=== PATIENT | male | born 1950 | race Caucasian/White ===

== ENCOUNTER 2018-09-04 23:36 | Observation (INO) | payer OTHER ==
[~2018-09-04] VITALS: Ht 172.7 cm; Wt 109.9 kg
--- NOTE | 2018-09-05 00:07 | PHYS DOC ---
Past History Past Medical History: Diabetes, Hypertension, [place] Past Surgical History: Cholecystectomy, Other Alcohol Use: None Drug Use: None Adult General Chief Complaint Chief Complaint: NAUSEA/VOMITING/DIARRHEA HPI HPI 68-year-old male presents via EMS with elevated blood sugar. The patient is diabetic on Humalog and Tresiba. He states that he was checking his blood sugar this evening and it was 343. He is not on a sliding scale to adjust her dose of its elevated. He was concerned about this level. He has been taking his insulins as prescribed. He has had some nausea but denies vomiting. He denies any other symptoms of illness. EMS found the patient's blood pressure be quite elevated. The patient tells me that he is not on any blood pressure medicines. He denies headache or visual disturbance. He denies fever or chills. He denies chest pain, shortness of breath, or diaphoresis. Review of Systems Review of Systems Constitutional: Denies fever or chills [] Eyes: Denies change in visual acuity, redness, or eye pain [] HENT: Denies nasal congestion or sore throat [] Respiratory: Denies cough or shortness of breath [] Cardiovascular: No additional information not addressed in HPI [] GI: Nausea. Denies abdominal pain, vomiting, bloody stools or diarrhea [] : Denies dysuria or hematuria [] Musculoskeletal: Denies back pain or joint pain [] Integument: Denies rash or skin lesions [] Neurologic: Denies headache, focal weakness or sensory changes [] Endocrine: Denies polyuria or polydipsia [] All other systems were reviewed and found to be within normal limits, except as documented in this note. Current Medications Current Medications Current Medications Medications (Trade) Dose Ordered Sig/[facility] Start Time Stop Time Status Last Admin Dose Admin Ondansetron HCl (Zofran) 4 mg 1X ONCE 09/05/18 00:00 09/05/18 00:01 UNV Physical Exam Physical Exam Constitutional: Well developed, obese, well nourished, no acute distress, non- toxic appearance. [] HENT: Normocephalic, atraumatic, bilateral external ears normal, oropharynx dry , no oral exudates, nose normal. [] Eyes: PERRLA, EOMI, conjunctiva normal, no discharge. [] Neck: Normal range of motion, no tenderness, supple, no stridor. [] Cardiovascular:Heart rate regular rhythm, no murmur [] Lungs & Thorax: Bilateral breath sounds clear to auscultation [] Abdomen: Bowel sounds normal, soft, no tenderness, no masses, no pulsatile masses. [] Skin: Warm, dry, no erythema, no rash. [] Back: No tenderness, no CVA tenderness. [] Extremities: No tenderness, no cyanosis, no clubbing, ROM intact, no edema. [] Neurologic: Alert and oriented X 3, normal motor function, normal sensory function, no focal deficits noted. The patient is a little slow to answer questions, but answers appropriately.[] Psychologic: Affect normal, judgement normal, mood normal. [] Current Patient Data Vital Signs Vital Signs Date Time Temp Pulse Resp B/P (MAP) Pulse Ox O2 Delivery O2 Flow Rate FiO2 09/04/18 23:36 97.9 59 22 93 Room Air EKG EKG Sinus rhythm, rate 60, normal axis, no ST elevation or depression[] Radiology/Procedures Radiology/Procedures [] Impressions: Examination: CHEST AP ONLY History: Chest pain Comparison/Correlation: None Findings: Portable frontal view chest was obtained. Sternal wires are present. Heart size is normal. No pneumothorax. Right lung field is clear. Left heart border is somewhat ill-defined. This may represent underlying adjacent lingular atelectasis. No significant effusion. Impression: Lingular atelectasis adjacent to the mediastinum is questioned. Consider interval follow-up two-view chest x-ray exam. Electronically signed by: Mindy Ray MD (09/05/2018 12:30 AM) [facility] DICTATED AND SIGNED BY: MINDY RAY MD DATE: 09/05/18 0026 CC: PAL HUTCHINSON DO; SABINO GROVER MD Course & Med Decision Making Course & Med Decision Making Pertinent Labs and Imaging studies reviewed. (See chart for details) 1 L of normal saline has been ordered. The patient is a slightly elevated white count 12.4. His urinalysis is significant for greater than 1000 glucose, but no signs of infection. Patient's EKG is unremarkable. His blood sugars to 92 but his anion gap is normal. The patient has had an elevated blood pressure in the 200s over 110s. I will give him 0.2 clonidine. His BP is still 180s over 100s. His repeat blood sugar after 1 L normal saline is 242. I will hold off on giving him the insulin as his long-acting may continue to correct his hyperglycemia. I will admit the patient to the hospital for further management of his blood pressure and blood sugar. I discussed the case with Dr. Sánchez and he has accepted the patient for admission. [] Dragon Disclaimer Dragon Disclaimer This electronic medical record was generated, in whole or in part, using a voice recognition dictation system. PAL HUTCHINSON DO Sep 05, 2018 00:07
[2018-09-05] MEDS ORDERED: IV NORMAL SALINE 1,000ML 1,000 ML IV ONE (00:15)
[2018-09-05 00:17] LABS: BASO # 0.1 x10^3/uL (0.0-0.2); BASO % 1 % (0-3); EOS # 0.1 x10^3/uL (0.0-0.7); EOS % 1 % (0-3); HEMATOCRIT 49.3 % (39.0-53.0); LYMPH # 4.1 x10^3/uL (1.0-4.8); LYMPH % 33 % (24-48); MEAN CORPUSCULAR HEMOGLOBIN 30 pg (25-35); MEAN CORPUSCULAR HGB CONC 34 g/dL (31-37); MEAN CORPUSCULAR VOLUME 88 fL (79-100); MONO # 1.4 x10^3/uL (0.0-1.1); MONO % 11 % (0-9); NEUT # 6.7 x10^3uL (1.8-7.7); NEUT % 54 % (31-73); PLATELET COUNT 236 x10^3/uL (140-400); RED BLOOD COUNT 5.63 x10^6/uL (4.30-5.70); RED CELL DISTRIBUTION WIDTH 14.3 % (11.5-14.5); WHITE BLOOD COUNT 12.4 x10^3/uL (4.0-11.0)
[2018-09-05 00:27] LABS: BACTERIA,URINE 0 /HPF (0-FEW); BILIRUBIN,URINE NEG (NEG); CLARITY,URINE CLEAR; COLOR,URINE YELLOW; GLUCOSE,URINE >=1000 mg/dL (NEG); NITRITE,URINE NEG (NEG); RBC,URINE OCC /HPF (0-2); SQUAMOUS EPITHELIAL CELL,UR OCC /LPF; UROBILINOGEN,URINE 0.2 mg/dL (0.2 mg/dL); WBC,URINE OCC /HPF (0-4)
[2018-09-05] MEDS ORDERED: cloNIDine HCL 0.1 MG TABLET PO ONE (00:30)
[2018-09-05] MEDS ORDERED: ONDANSETRON PF 4 MG/2 ML VIAL. IV ONE (00:30)
[2018-09-05] MEDS ORDERED: METOPROLOL TARTRATE 5 MG/5 ML VIAL. IV ONE (00:30)
[2018-09-05 00:32] LABS: ALBUMIN 3.7 g/dL (3.4-5.0); ALBUMIN/GLOBULIN RATIO 0.8 (1.0-1.7); CALCIUM 9.4 mg/dL (8.5-10.1); CREATININE 0.9 mg/dL (0.7-1.3); GFR 83.7; POTASSIUM 3.8 mmol/L (3.5-5.1); TOTAL BILIRUBIN 0.3 mg/dL (0.2-1.0); TOTAL PROTEIN 8.3 g/dL (6.4-8.2)
--- NOTE | 2018-09-05 00:33 | RAD ---
Examination: CHEST AP ONLY History: Chest pain Comparison/Correlation: None Findings: Portable frontal view chest was obtained. Sternal wires are present. Heart size is normal. No pneumothorax. Right lung field is clear. Left heart border is somewhat ill-defined. This may represent underlying adjacent lingular atelectasis. No significant effusion. Impression: Lingular atelectasis adjacent to the mediastinum is questioned. Consider interval follow-up two-view chest x-ray exam. Electronically signed by: Kale Montalvo MD (09/05/2018 12:30 AM) [id number]
[2018-09-05] MEDS ORDERED: INSULIN REGULAR 100 UNIT/ML 3ML VIAL. IV ONE (01:15)
[2018-09-05 02:45] VITALS: BP 167/84
--- NOTE | 2018-09-05 02:54 | EKG ---
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
[2018-09-05 06:35] VITALS: BP 141/83
[2018-09-05] MEDS ORDERED: HYDR25TA10 PO (07:55)
[2018-09-05] MEDS ORDERED: LISI-334 PO (07:55)
[2018-09-05] MEDS ORDERED: METF10007 PO (07:55)
[2018-09-05] MEDS ORDERED: INSU100I30 SQ (07:55)
[2018-09-05] MEDS ORDERED: DEXTROSE 50% 25 GM / 50ML DISP.SYRIN. IV PRN (08:00)
[2018-09-05] MEDS ORDERED: PREG150C PO (08:21)
[2018-09-05] MEDS ORDERED: TRAZ-86 PO (08:21)
[2018-09-05] MEDS ORDERED: metFORMIN XR 500 MG TAB.ER.24H PO SCH (08:30)
[2018-09-05] MEDS: INSULIN LISPRO 300 UNITS/3 ML INSULN.PEN. SQ SCH ×2 (08:58→13:58)
[2018-09-05] MEDS ORDERED: LISINOPRIL 20 MG TABLET PO SCH (09:00)
[2018-09-05] MEDS ORDERED: hydroCHLOROthiazide 25 MG TABLET PO SCH (09:00)
[2018-09-05] MEDS ORDERED: INSULIN DEGLUDEC 70 UNIT SQ SCH (09:00)
[2018-09-05] MEDS ORDERED: PREGABALIN 75 MG CAPSULE PO SCH (09:00)
[2018-09-05 10:38] VITALS: BP 169/82
[2018-09-05] MEDS ORDERED: ACETAMINOPHEN 325 MG TABLET PO PRN (13:45)
[2018-09-05 14:20] VITALS: BP 163/91
--- NOTE | 2018-09-05 18:01 | SSS ---
ADMIT DATE: 09/05/2018 HISTORY OF PRESENT ILLNESS: The patient is a 68-year-old male patient, who came to the Emergency Room with recurrent episodes of nausea, vomiting and diarrhea. He was extensively investigated in the Emergency Room, was found to have clearly elevated blood sugar with a blood sugar of 343 and his blood pressure also was extremely high. He stated that he has been taking his insulin as prescribed. He did complain apparently have some nausea, but denied any vomiting. He denied any other symptoms of illness. His blood pressure was found to be quite elevated. He seemed to have some problems with his memory. He is actually on blood pressure medication. He takes from [facility] and his primary care physician is Dr. Marte. In any case, the patient was extensively investigated in the Emergency Room, was found to have a markedly elevated blood sugar of 343 and blood pressure was extremely high also with initial measurement was almost 201/83. The patient was started on IV fluids, was given insulin and his blood sugar came down slowly. PAST MEDICAL HISTORY: Significant for type 2 diabetes, hypertension, and hyperlipidemia. He has coronary artery disease, status post CABG in 2004. He has also PCI with stent deployment and cerebrovascular accident. PAST SURGICAL HISTORY: Significant for coronary artery bypass graft surgery, PCI with stent deployment valve replacement, cholecystectomy, and colonoscopy. ALLERGIES: He has no known drug allergies. MEDICATIONS: He is currently on following medications: He is on lisinopril 20 mg once a day, Lyrica 150 mg once a day, trazodone 100 mg at bedtime, hydrochlorothiazide 25 mg once a day, and metformin 1000 mg once a day. He is on Tresiba FlexTouch 70 units daily and he is also on Humalog insulin as the insulin sliding scale. FAMILY HISTORY: He has 2 brothers and 4 sisters. His younger brother in a car accident at the age of 31. His father at age of 64 because of cancer. Mother at age of 82. SOCIAL HISTORY: He is , has 2 sons. Quit smoking at the age of 49 about 19 years ago. He does not drink alcohol and use sometimes marijuana. 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 REVIEW OF SYSTEMS: As per history of present illness. PHYSICAL EXAMINATION GENERAL: When I examined him, after we restarted his medication, he looked well and was clearly in no apparent respiratory distress. VITAL SIGNS: His heart rate was 71, blood pressure was 163/91, temperature was 98.1, and respiratory rate 20, and oxygen saturation was 94%. HEAD, EYES, EARS, NOSE AND THROAT: Showed normocephalic, atraumatic. NECK: Supple. HEART: Showed normal first and second heart sounds with no gallop, rub or murmur. CHEST: Clear to auscultation. No crepitation or rhonchi. ABDOMEN: Distended, soft, nontender. No guarding or rigidity. No organomegaly. All hernial orifice intact. Bowel sounds normal. NEUROLOGIC: He was awake, alert, responding appropriately. All cranial nerves intact. He moves extremities without difficulty, ambulates without assistance or assistive devices. LABORATORY DATA: Showed a serum sodium 139, potassium 3.8, chloride 101, bicarbonate 24, anion gap of 14, BUN of 18, creatinine 0.9, estimated GFR was 83 mL per minute. His glucose was 292, calcium was 9.4. Total bilirubin, AST, ALT, alkaline phosphatase were normal. His total protein was 8.3 and albumin was 3.7. His serum lipase was 337. White cell count was 12,400, hemoglobin 17, hematocrit 49, MCV 88 and platelet count 236,000. Urinalysis was essentially unremarkable. There was a large amount of protein and large amount of glucose, trace of ketones, trace of blood, negative for leukocyte esterase, no rbc's, no wbc's, and no bacteria. His chest x-ray was unremarkable and a portable chest x-ray showed that sternal wires are present. Heart size is normal. No pneumothorax. Right lung ellis are clear. Left heart border is somewhat ill-defined that represents underlying adjacent lingular atelectasis. No significant effusion: As the patient remained stable and his blood pressure and blood sugar improved, a decision was made to discharge him home to continue on his current medication. We will write a prescription for his lisinopril and the patient was advised to follow with his primary care physician. FINAL DISCHARGE DIAGNOSES: 1. Poorly controlled type 2 diabetes mellitus. 2. Poorly controlled hypertension, much better improved once we started him on all his medication. FABIAN GLASS MD DR: GERARD/zuleika JOB#: [id number] / [id number]
[2018-09-05] MEDS ORDERED: traZODone 100 MG TABLET. PO SCH (21:00)
== END 2018-09-05 15:43 | disposition home or self-care (01) ==
LOC: ER 23:36 → INTOOBSV 09-05 01:10 → 1 SOUTH 09-05 01:10 → ER 09-05 01:48
PROVIDERS: ADMIT Internal Medicine; ATTEND Internal Medicine
DX: E11.65 Type 2 diabetes mellitus with hyperglycemia (principal); I10 Essential (primary) hypertension; I25.10 Atherosclerotic heart disease of native coronary artery without angina pectoris; E78.5 Hyperlipidemia, unspecified; Z86.73 Personal history of transient ischemic attack (TIA), and cerebral infarction without residual deficits; Z95.1 Presence of aortocoronary bypass graft; Z95.2 Presence of prosthetic heart valve; Z90.49 Acquired absence of other specified parts of digestive tract; Z79.899 Other long term (current) drug therapy
CPT/HCPCS: 36415; 71045; 80053; 81001; 82947; 83690; 84484; 85025; 93005; 96361; 96372; 96374; G0378; G0379; J1815; J2405; 99284-25; J7030

== ENCOUNTER 2018-11-19 13:12 | Emergency (ER) | payer OTHER ==
[~2018-11-19] VITALS: Ht 175.3 cm; Wt 112.5 kg
[~2018-11-19 13:12] MED LIST: HYDR25TA10 PO; INSU100I30 SQ; LISI-334 PO; METF10007 PO; PREG150C PO; TRAZ-86 PO
--- NOTE | 2018-11-19 14:09 | PHYS DOC ---
Past History Past Medical History: Diabetes, Hypertension, [place] Past Surgical History: Cholecystectomy, Other Alcohol Use: None Drug Use: None Adult General Chief Complaint Chief Complaint: LACERATION/AVULSION HPI HPI 68-year-old male [facility] of the left hand. Patient was cutting food at home with a knife slipped and he lacerated the base of his left thumb. The lacerations about 3 cm in length. Patient had immediate bleeding and realized that needed to be stitched. He has no other injuries. The knife was not heavily contaminated. Patient had a tetanus shot 3 years ago. Review of Systems Review of Systems Constitutional: Denies fever or chills [] Eyes: Denies change in visual acuity, redness, or eye pain [] HENT: Denies nasal congestion or sore throat [] Respiratory: Denies cough or shortness of breath [] Cardiovascular: No additional information not addressed in HPI [] GI: Denies abdominal pain, nausea, vomiting, bloody stools or diarrhea [] : Denies dysuria or hematuria [] Musculoskeletal: Denies back pain or joint pain [] Integument: Centimeter curved laceration of the left palm[] Neurologic: Denies headache, focal weakness or sensory changes [] Endocrine: Denies polyuria or polydipsia [] All other systems were reviewed and found to be within normal limits, except as documented in this note. Allergies Allergies Allergies Coded Allergies Type Severity Reaction Last Updated Verified No Known Drug Allergies 09/05/18 No Physical Exam Physical Exam Constitutional: Well developed, well nourished, no acute distress, non-toxic appearance. [] HENT: Normocephalic, atraumatic, bilateral external ears normal, oropharynx moist, no oral exudates, nose normal. [] Eyes: PERRLA, EOMI, conjunctiva normal, no discharge. [] Neck: Normal range of motion, no tenderness, supple, no stridor. [] Cardiovascular:Heart rate regular rhythm, no murmur [] Lungs & Thorax: Bilateral breath sounds clear to auscultation [] Abdomen: Bowel sounds normal, soft, no tenderness, no masses, no pulsatile masses. [] Skin: 3 cm curved laceration at the base of the left thumb. Neurovascularly intact[] Back: No tenderness, no CVA tenderness. [] Extremities: No tenderness, no cyanosis, no clubbing, ROM intact, no edema. [] Neurologic: Alert and oriented X 3, normal motor function, normal sensory function, no focal deficits noted. [] Psychologic: Affect normal, judgement normal, mood normal. [] Current Patient Data Vital Signs Vital Signs Date Time Temp Pulse Resp B/P (MAP) Pulse Ox O2 Delivery O2 Flow Rate FiO2 11/19/18 13:15 98.2 59 20 96 Room Air EKG EKG [] Radiology/Procedures Radiology/Procedures [] Course & Med Decision Making Course & Med Decision Making Pertinent Labs and Imaging studies reviewed. (See chart for details) Patient had a laceration of the palm of his left hand. I was able to repair with sutures. See note for more details. His tetanus is up to date as it was only 3 years ago. He is stable for discharge at this time. Antibiotics are not indicated at this time. [] Dragon Disclaimer Dragon Disclaimer This electronic medical record was generated, in whole or in part, using a voice recognition dictation system. Laceration Repair Lac Repair Indication: [3 cm curved laceration of the palm of the left hand at the base of the left thumb.] Procedure: Verbal consent was obtained from the patient for suture repair of his laceration. Wound was thoroughly cleansed with a saline Hibiclens mixture. There were no foreign bodies found. I anesthetized the patient with 2.5 mL of 2 % lidocaine with epinephrine. Once adequate anesthesia was achieved and was able repair the laceration with 4 4-0 Ethilon sutures in an interrupted fashion. The wound was then covered in triple antibiotic and a nonadherent dressing. Total repaired wound length: [3 cm]. Other Items: [None] The patient tolerated the procedure well. Complications: [None. Departure Departure: Impression: Primary Impression: Laceration of left hand without complication, excluding fingers Disposition: 01 HOME, SELF-CARE Condition: IMPROVED Referrals: SABINO GROVER MD (PCP) Patient Instructions: Laceration Care, Adult, [facility] Problem Qualifiers Primary Impression: Laceration of left hand without complication, excluding fingers Encounter type: initial encounter Qualified Codes: S61.412A - Laceration without foreign body of left hand, initial encounter PAL HUTCHINSON DO Nov 19, 2018 14:09
[2018-11-19 14:10] VITALS: BP 154/69
== END 2018-11-19 14:10 | disposition home or self-care (01) ==
LOC: ER 13:12
DX: S61.412A Laceration without foreign body of left hand, initial encounter (principal); E11.9 Type 2 diabetes mellitus without complications; I10 Essential (primary) hypertension; I25.2 Old myocardial infarction; W26.0XXA Contact with knife, initial encounter; Y93.89 Activity, other specified; Y92.89 Other specified places as the place of occurrence of the external cause; Y99.8 Other external cause status
CPT/HCPCS: 12001; 12002; 99283

== ENCOUNTER 2018-11-24 12:12 | Emergency (ER) | payer OTHER ==
--- NOTE | 2018-11-24 12:35 | PHYS DOC ---
Past History Past Medical History: Diabetes, [place], [place] Past Surgical History: Cholecystectomy, Other Alcohol Use: None Drug Use: None Adult General Chief Complaint Chief Complaint: suture removal [facility] HPI Patient is a 68 year old male who presents suture removal. Patient had left palm laceration and had 4 stitches placement on November 19. Patient was updated with his tetanus immunization. Patient denies any fever and pain. Review of Systems Review of Systems Constitutional: Denies fever or chills [] Eyes: Denies change in visual acuity, redness, or eye pain [] HENT: Denies nasal congestion or sore throat [] Respiratory: Denies cough or shortness of breath [] Cardiovascular: No additional information not addressed in HPI [] GI: Denies abdominal pain, nausea, vomiting, bloody stools or diarrhea [] : Denies dysuria or hematuria [] Musculoskeletal: Denies back pain or joint pain [] Integument: Denies rash or skin lesions [] Neurologic: Denies headache, focal weakness or sensory changes [] Endocrine: Denies polyuria or polydipsia [] All other systems were reviewed and found to be within normal limits, except as documented in this note. Allergies Allergies Allergies Coded Allergies Type Severity Reaction Last Updated Verified No Known Drug Allergies 09/05/18 No Physical Exam Physical Exam Constitutional: Well developed, well nourished, no distress, non-toxic appearance. [] HENT: Normocephalic, atraumatic. Eyes: PERRLA, EOMI, conjunctiva normal, no discharge. [] Neck: Normal range of motion, no tenderness, supple, no stridor. [] Cardiovascular:Heart rate regular rhythm, no murmur [] Lungs & Thorax: Bilateral breath sounds clear to auscultation [] Skin: Warm, dry, no erythema, no rash. Left thumb with 4 healed suture sign of infection [] Back: No tenderness, no CVA tenderness. [] Extremities: No tenderness, no cyanosis, no clubbing, ROM intact, no edema. [] Neurologic: Alert and oriented X 3, no focal deficits noted. [] Psychologic: Affect normal, judgement normal, mood normal. [] EKG EKG [] Radiology/Procedures Radiology/Procedures [] Course & Med Decision Making Course & Med Decision Making Evaluation of patient in ER showed 68-year-old male patient presented for suture removal. 4 well healed suture of left thumb was removed by by [employer]. Goldy Disclaimer Dragon Disclaimer This electronic medical record was generated, in whole or in part, using a voice recognition dictation system. Departure Departure: Impression: Primary Impression: Encounter for removal of sutures Disposition: HOME, SELF-CARE (at 1234) Condition: STABLE Referrals: SABINO GROVER MD (PCP) Patient Instructions: Suture Removal Additional Instructions: Keep wound clean and dry SEJAL TREVINO MD Nov 24, 2018 12:35
== END 2018-11-24 12:41 | disposition home or self-care (01) ==
LOC: ER 12:12
DX: S61.412D Laceration without foreign body of left hand, subsequent encounter (principal); E11.9 Type 2 diabetes mellitus without complications; I10 Essential (primary) hypertension; I25.2 Old myocardial infarction; X58.XXXD Exposure to other specified factors, subsequent encounter
CPT/HCPCS: 99281

== ENCOUNTER 2019-08-24 20:15 | Inpatient (IN) | payer MEDICARE, OTHER ==
[~2019-08-24] VITALS: Ht 175.3 cm; Wt 103.9 kg
[~2019-08-24 20:15] MED LIST changes: +TRAZ-125 PO; -TRAZ-86 PO
[2019-08-24] MEDS ORDERED: ASPIRIN 81 MG TAB.CHEW ONE (20:18)
[2019-08-24] MEDS ORDERED: IV RINGERS SOLUTION,LACTATED 1,000 ML IV SCH (20:26)
--- NOTE | 2019-08-24 20:26 | PHYS DOC ---
Past History Past Medical History: No Pertinent History, Arthritis, CAD, CHF, COPD, Diabetes, GERD, Hypertension, Other Past Surgical History: Angioplasty, Coronary Bypass Surgery Smoking: Cigarettes, Quit Greater Than 1 Year Alcohol Use: None Drug Use: Marijuana Adult General Chief Complaint Chief Complaint: CHEST PAIN." I have some chest pain here on Lt... center lower... it been constant the last hour... I had prior [place] and Bypass... " HPI HPI Patient is a 69 year old male who presents with above hx of chest pain x 1 hrs. patient localizes pain in left pectoral and sternal area. Patient's rated 9-10 out of 10 and has been constant for the past hour. Patient states pain is similar to previous heart attack. Patient reports compliance wtith his meds. Pt. had previous bypass surgery in 1980s and had a cardiac stent approximately 4 years ago. Patient normally follows with Dr. Grover and a binding cementer french cord at [facility] but does not remember name. Patient states he no longer smokes tobacco but does smoke marijuana. No recent travel or specific ill contacts. Did patient has history of multiple medical issues arthritis, coronary artery disease, CHF, COPD, diabetes, GERD, hypertension, and deconditioning. Review of Systems Review of Systems Constitutional: Denies fever or chills [] Eyes: Denies change in visual acuity, redness, or eye pain [] HENT: Denies nasal congestion or sore throat [] Respiratory: Denies cough or shortness of breath [] Cardiovascular: No additional information not addressed in HPI [] GI: Denies abdominal pain, nausea, vomiting, bloody stools or diarrhea [] : Denies dysuria or hematuria [] Musculoskeletal: Denies back pain or joint pain [] Integument: Denies rash or skin lesions [] Neurologic: Denies headache, focal weakness or sensory changes [] Endocrine: Denies polyuria or polydipsia [] All other systems were reviewed and found to be within normal limits, except as documented in this note. Family History Family History Noncontributory Current Medications Current Medications Current Medications Medications (Trade) Dose Ordered Sig/Jeffrey Start Time Stop Time Status Last Admin Dose Admin Aspirin (Children'S Aspirin) 81 mg STK-MED ONCE 08/24/19 20:18 08/24/19 20:18 DC Allergies Allergies Allergies Coded Allergies Type Severity Reaction Last Updated Verified No Known Drug Allergies 09/05/18 No Physical Exam Physical Exam Constitutional: Moderate acute distress, non-toxic appearance. [] HENT: Normocephalic, atraumatic, bilateral external ears normal, oropharynx moist, no oral exudates, nose normal. Edentulous Eyes: PERRLA, EOMI, conjunctiva normal, no discharge. [] Neck: Normal range of motion, no tenderness, supple, no stridor. [] Cardiovascular:Heart rate regular rhythm, no murmur []PMI to the left Lungs & Thorax: Bilateral breath sounds equal at apex with scattered wheezing throughout on auscultation []midline sternal scar Abdomen: Bowel sounds normal, soft, no tenderness, no masses, no pulsatile masses. [] Obese. Old surgery scars Skin: Warm, dry, no erythema, no rash. [] Back: No tenderness, no CVA tenderness. [] Extremities: No tenderness, no cyanosis, no clubbing, ROM intact, ankle edema. Arthritic changes.. [] Neurologic: Alert and oriented X 3, moves extremities on request. Does have distal sensory. No focal deficits noted. [] Psychologic: Affect anxious, judgement normal, mood normal. [] EKG EKG My interpretation EKG shows a sinus rhythm at 60 bpm. Some nonspecific T-wave changes in inferior changes. Slightly prolonged QT interval. QTC is 490 ms QT is 456 ms no current findings of acute STEMI with contralateral changes Radiology/Procedures Radiology/Procedures [][place] [address] IMAGING REPORT Signed PATIENT: SHARONDA DO ACCOUNT: [id number] : 1950 LOCATION: ER AGE: 69 SEX: M EXAM STATUS: REG ER ORD. PHYSICIAN: EVETTE PATEL MD REASON: CHEST PAIN. PROCEDURE: PORTABLE CHEST 1V PORTABLE CHEST 1V INDICATION: Chest pain. COMPARISON STUDY: 09/04/2018. FINDINGS: Lungs: Low lung volume. No confluent consolidation. Prominent interstitial markings. Pleura: No pleural effusion or pneumothorax. Heart and Mediastinum: The cardiomediastinal silhouette is normal. The great vessels of the thorax are normal. IMPRESSION: Prominent interstitial markings, which may reflect interstitial edema. Electronically signed by: Kassidy Herndon MD (08/24/2019 8:51 PM) [facility] DICTATED AND SIGNED BY: KASISDY HERNDON MD DATE: 08/24/192050 CC: EVETTE PATEL MD; SABINO GROVER MD ~ Course & Med Decision Making Course & Med Decision Making Pertinent Labs and Imaging studies reviewed. (See chart for details) Admit to Dr. Diallo with cardiology consult. Will start insulin drip. Do not feel these in DKA but just hyperglycemia. Patient will have serial enzymes. In a cardiology consult. Heart Score 6 Impression: 1. Chest Pain 2. Leukocytosis 12.2 3. DM - glucose 548 4. Marijuana Use 5. Hx. CADz with bypass and stents 6. Hx. of COPD [] Dragon Disclaimer Dragon Disclaimer This electronic medical record was generated, in whole or in part, using a voice recognition dictation system. Departure Departure: Disposition: 01 HOME/RESIDENCE PRIOR TO ADM Condition: STABLE Referrals: SABINO GROVER MD (PCP) EVETTE PATEL MD Aug 24, 2019 20:26
[2019-08-24] MEDS ORDERED: ENOXAPARIN ** NOTE DOSE ** SYRINGE SQ ONE (20:30)
[2019-08-24] MEDS ORDERED: MORPHINE SULFATE 2 MG/ML DISP.SYRIN. IV ONE (20:30)
[2019-08-24] MEDS ORDERED: NITROGLYCERIN OINT 1 GM PACKET. TP ONE (20:30)
[2019-08-24] MEDS ORDERED: ASPIRIN 81 MG TAB.CHEW PO ONE (20:30)
[2019-08-24 20:40] LABS: BASO # 0.1 x10^3/uL (0.0-0.2); BASO % 1 % (0-3); EOS # 0.1 x10^3/uL (0.0-0.7); EOS % 1 % (0-3); HEMATOCRIT 50.2 % (39.0-53.0); LYMPH # 3.3 x10^3/uL (1.0-4.8); LYMPH % 27 % (24-48); MEAN CORPUSCULAR HEMOGLOBIN 30 pg (25-35); MEAN CORPUSCULAR HGB CONC 34 g/dL (31-37); MEAN CORPUSCULAR VOLUME 89 fL (79-100); MONO # 1.2 x10^3/uL (0.0-1.1); MONO % 10 % (0-9); NEUT # 7.4 x10^3uL (1.8-7.7); NEUT % 61 % (31-73); PLATELET COUNT 220 x10^3/uL (140-400); RED BLOOD COUNT 5.62 x10^6/uL (4.30-5.70); WHITE BLOOD COUNT 12.2 x10^3/uL (4.0-11.0)
--- NOTE | 2019-08-24 20:54 | RAD ---
PORTABLE CHEST 1V INDICATION: Chest pain. COMPARISON STUDY: 09/04/2018. FINDINGS: Lungs: Low lung volume. No confluent consolidation. Prominent interstitial markings. Pleura: No pleural effusion or pneumothorax. Heart and Mediastinum: The cardiomediastinal silhouette is normal. The great vessels of the thorax are normal. IMPRESSION: Prominent interstitial markings, which may reflect interstitial edema. Electronically signed by: Lorenzo Herndon MD (08/24/2019 8:51 PM) [facility]
[2019-08-24 20:58] LABS: BARBITURATES NEG (NEG); BENZODIAZEPINES NEG (NEG); CANNABINOIDS POS (NEG); CLARITY,URINE CLEAR; COCAINE NEG (NEG); COLOR,URINE YELLOW; GLUCOSE,URINE >=1000 mg/dL (NEG); METHADONE NEG (NEG); OPIATES NEG (NEG); PHENCYCLIDINE NEG (NEG)
[2019-08-24 20:59] LABS: BACTERIA,URINE FEW /HPF (0-FEW); BILIRUBIN,URINE NEG (NEG); NITRITE,URINE NEG (NEG); RBC,URINE RARE /HPF (0-2); UROBILINOGEN,URINE 0.2 mg/dL (0.2 mg/dL); WBC,URINE RARE /HPF (0-4)
[2019-08-24 21:00] LABS: AMPHETAMINE/METHAMPHETAMINE NEG (NEG)
[2019-08-24 21:02] LABS: ALBUMIN 3.6 g/dL (3.4-5.0); CALCIUM 9.3 mg/dL (8.5-10.1); CREATININE 1.2 mg/dL (0.7-1.3); DIRECT BILIRUBIN 0.1 mg/dL (0.0-0.2); GFR 59.9; MAGNESIUM 1.8 mg/dL (1.8-2.4); POTASSIUM 4.4 mmol/L (3.5-5.1); TOTAL BILIRUBIN 0.3 mg/dL (0.2-1.0); TOTAL PROTEIN 8.1 g/dL (6.4-8.2)
[2019-08-24] MEDS ORDERED: INSULIN REGULAR VIAL 150 UNIT in 0.9 % SODIUM CHLORIDE 150ML 150 ML IV ONE ×2 (21:30→21:45)
[2019-08-24] MEDS ORDERED: IV NORMAL SALINE 1,000ML 1,000 ML IV ONE (21:30)
[2019-08-24] MEDS ORDERED: 0.9 % SODIUM CHLORIDE 150ML 150 ML ONE (21:37)
[2019-08-24] MEDS ORDERED: ACETAMINOPHEN 325 MG TABLET PO PRN (21:45)
[2019-08-24] MEDS ORDERED: ONDANSETRON PF 4 MG/2 ML VIAL. IV PRN (21:45)
[2019-08-24] MEDS: MORPHINE SULFATE 2 MG/ML DISP.SYRIN. IV PRN (22:39)
[2019-08-24 23:06] LABS: BGAS PH 7.35 (7.35-7.46)
[2019-08-25] MEDS: INSULIN REGULAR VIAL 150 UNIT in 0.9 % SODIUM CHLORIDE 150ML 150 ML IV PRN ×4 (00:52→10:57)
[2019-08-25 01:01] VITALS: BP 118/75
--- NOTE | 2019-08-25 02:00 | NUR ---
The patient, SHARONDA DO, 69 y/o, M admitted by SERA ROSADO MD, to room 122, was given written information regarding hospital policies, unit procedures and contact persons. Valuables were checked and left with the patient. Vitals assessed. Medical and social history reviewed. Medication use reviewed. Insulin drip reviewed and adjusted. Will continue to monitor.
--- NOTE | 2019-08-25 02:05 | NUR ---
Pt states he just stopped taking Metformin and insulin a couple weeks ago but isn't sure why. He thinks maybe he ran out of the medication. He says he feels unsteady in the afternoons and uses a cane only during that time. Pt has a glucometer at home and checks his blood sugar on occasion. He follows no particular diet.
--- NOTE | 2019-08-25 03:55 | EKG ---
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
--- NOTE | 2019-08-25 04:09 | NUR ---
Routine cardio consult called at this time.
[2019-08-25 04:29] LABS: BASO % 0 % (0-3); EOS # 0.2 x10^3/uL (0.0-0.7); EOS % 2 % (0-3); HEMATOCRIT 45.2 % (39.0-53.0); HEMOGLOBIN 15.8 g/dL (13.0-17.5); LYMPH # 5.2 x10^3/uL (1.0-4.8); LYMPH % 44 % (24-48); MEAN CORPUSCULAR HEMOGLOBIN 31 pg (25-35); MEAN CORPUSCULAR HGB CONC 35 g/dL (31-37); MEAN CORPUSCULAR VOLUME 89 fL (79-100); MONO # 1.5 x10^3/uL (0.0-1.1); MONO % 13 % (0-9); NEUT # 4.8 x10^3uL (1.8-7.7); NEUT % 41 % (31-73); PLATELET COUNT 205 x10^3/uL (140-400); RED CELL DISTRIBUTION WIDTH 13.7 % (11.5-14.5); WHITE BLOOD COUNT 11.7 x10^3/uL (4.0-11.0)
[2019-08-25 04:39] LABS: CREATININE 0.8 mg/dL (0.7-1.3); GFR 95.6; POTASSIUM 3.5 mmol/L (3.5-5.1)
[2019-08-25] MEDS ORDERED: IPRATRPIUM/ALBUTEROL 0.5/2.5MG 3 ML NEBU. ONE (04:54)
[2019-08-25] MEDS ORDERED: IV DEXTROSE 5 %-0.45 % NACL 1,000 ML IV SCH (05:15)
[2019-08-25] MEDS: POTASSIUM CL 20MEQ D5-0.45NACL 1,000 ML IV SCH ×3 (05:22→16:47)
[2019-08-25 05:23] VITALS: BP 114/70
[2019-08-25] MEDS: IPRATRPIUM/ALBUTEROL 0.5/2.5MG 3 ML NEBU. NEB SCH ×4 (05:32→20:00)
[2019-08-25] MEDS: NITROGLYCERIN OINT 1 GM PACKET. TP SCH ×3 (06:00→20:21)
[2019-08-25] MEDS ORDERED: ASPIRIN 81 MG TAB.CHEW PO SCH (08:00)
[2019-08-25] MEDS ORDERED: ENOXAPARIN ** NOTE DOSE ** SYRINGE SQ SCH (09:00)
[2019-08-25] MEDS ORDERED: hydroCHLOROthiazide 25 MG TABLET PO SCH (10:00)
[2019-08-25] MEDS ORDERED: PREGABALIN 50 MG CAPSULE PO SCH ×2 (10:00→21:00)
[2019-08-25] MEDS: metFORMIN 500 MG TABLET PO SCH (10:07)
[2019-08-25] MEDS: LISINOPRIL 20 MG TABLET PO SCH (10:08)
[2019-08-25 10:46] LABS: HDLC 30 mg/dL (40-60); TRIGLYCERIDES 982 mg/dL (0-150)
[2019-08-25 10:47] LABS: THYROID STIM HORMONE (TSH) 1.017 uIU/mL (0.358-3.740)
[2019-08-25] MEDS: INSULIN GLARGINE SYRINGE. SQ SCH (10:57)
[2019-08-25 11:33] VITALS: BP 126/60
--- NOTE | 2019-08-25 11:39 | CONS ---
DATE OF CONSULTATION: 08/25/2019 REASON FOR CONSULTATION: Chest pain. HISTORY OF PRESENT ILLNESS: The patient is a pleasant 69-year-old man with past medical history as noted below. His history is limited due to his flat affect and overall somnolent state. He presented to the ER yesterday due to some band-like pain, which was worse with palpation and deep breath. He has a remote history of coronary artery disease, supposedly in the 80s and thinks he might have had a heart stent put in as well several years ago. He denies any problems at home up until 2-3 days ago. He has not had any recent cough, fevers or chills. He denies any worsening lower extremity edema, palpitations, orthopnea, or PND. No recent trauma. Initial workup in the ER was unremarkable. PAST MEDICAL HISTORY: 1. Hypertension. 2. Dyslipidemia. 3. Diabetes with initial presenting blood glucose of 548. 4. Coronary artery disease. SOCIAL HISTORY: He denies any alcohol, tobacco or illicit drug use. He lives with his son. ALLERGIES: No known drug allergies. CURRENT CARDIOVASCULAR MEDICATIONS: 1. Lisinopril 20 mg daily. 2. Hydrochlorothiazide 25 mg p.o. daily. 3. Aspirin 81 mg daily. REVIEW OF SYSTEMS: Negative unless otherwise mentioned above in HPI. PHYSICAL EXAMINATION: VITAL SIGNS: Afebrile, 52, 20, 114/70, 95% on room air. GENERAL: He appears disheveled and in poor hygiene. HEAD AND NECK: Unremarkable. CARDIAC: Regular rate and rhythm without murmurs, rubs or gallops. LUNGS: Clear to auscultation. ABDOMEN: Obese, nontender, nondistended. EXTREMITIES: No clubbing, cyanosis or edema. NEUROLOGIC: No focal deficits. MUSCULOSKELETAL: He has tenderness and pain to palpation throughout the epigastric region. DIAGNOSTIC STUDIES: Cardiac enzymes are negative x 3. Blood sugars are much improved. His potassium was mildly decreased at 3.5. EKGs demonstrate sinus rhythm with nonspecific anterolateral T-wave inversions. Chest x-ray is notable for some mild interstitial edema. IMPRESSION: 1. Chest pain, noncardiac. 2. Probable mild diastolic heart failure. 3. Prior history of coronary artery disease, currently stable. 4. Dyslipidemia. 5. Hypertension, currently well controlled. RECOMMENDATIONS: 1. At this present time, we will obtain an echocardiogram to rule out any cardiomyopathy given his longstanding history and obesity. 2. Continue present medications. His epigastric discomfort is noncardiac at this time. Consider GERD or musculoskeletal pain. Thank you for this consultation. FIDENCIO GAONA MD DR: HASMUKH/zuleika JOB#: [id number] / [id number] DASHAWN
[2019-08-25] MEDS: MORPHINE SULFATE 2 MG/ML DISP.SYRIN. IV PRN ×4 (11:48→20:45)
[2019-08-25] MEDS ORDERED: DEXTROSE 50% 25 GM / 50ML DISP.SYRIN. IV PRN (12:15)
[2019-08-25] MEDS: FUROSEMIDE 20 MG/2 ML VIAL IVP SCH (12:16)
[2019-08-25] MEDS ORDERED: ASPIRIN ENTERIC COATED 81 MG TABLET.DR. PO ONE (14:15)
[2019-08-25 16:25] VITALS: BP 148/68
--- NOTE | 2019-08-25 16:34 | HP ---
ADMIT DATE: 08/24/2019 HISTORY OF PRESENT ILLNESS: The patient is a 69-year-old gentleman came in through the Emergency Room. The patient had chest pain for about an hour prior to admission. The patient had left pectoral and sternal area, rated 9/10. The patient says it has been pretty constant for the past. Previous history of heart attack in the past. The patient has had bypass surgery in the 1980s. The patient noted some mild shortness of breath. The patient was admitted for further evaluation, rule out UT protocol as well as consultation with Cardiology to rule out any further new onset of recurrent coronary artery disease. PAST MEDICAL HISTORY: Previous history of heart attack, congestive heart failure, open heart surgery, coronary stent placement, COPD, generalized arthritis, morbid obesity, diabetes. Tetanus and diphtheria shots up-to-date as well as his influenza. No note on his pneumonia. ALLERGIES: The patient has no known allergy. SOCIAL HISTORY: Presently, denies any smoking or illicit drug use. He denies alcohol use at this time. MEDICATIONS: The patient's current cardiovascular meds, lisinopril 20 mg a day, hydrochlorothiazide 25, aspirin 81. REVIEW OF SYSTEMS: The patient denies headaches, visual changes. Does have some lethargy, says the chest pain is not relieved with nitroglycerin. The patient otherwise does have mild shortness of breath, dyspnea, morbid obesity. The patient denies problem with bowels or bladder. No melena, hematochezia or hematemesis. Neurologically baseline except for his lethargy. PHYSICAL EXAMINATION: GENERAL: This is a pleasant white male, looks a little lethargic. Memory is a little bit off. The patient was just seen by Dr. Ortiz half an hour later, he said he never saw the gema. VITAL SIGNS: Blood pressure 150/88, respiratory rate 18, pulse 62, afebrile. HEENT: The patient's head is atraumatic, normocephalic. Eyes: PERRLA without jaundice. The mouth and throat were normal. LUNGS: Diminished throughout, poor movement of air. CARDIOVASCULAR: Regular sinus rhythm, S1, S2, without murmur, rub, thrill or extra heart sounds. ABDOMEN: Protuberant, soft, nontender. No rebound or guarding. Positive bowel sounds, no hepatosplenomegaly. He was noted to have some epigastric discomfort and possible reflux. EXTREMITIES: No clubbing, cyanosis, nor edema. NEUROLOGIC: The patient seems to be alert and oriented, although the memories at this time may have been ____ drowsy. LABORATORY DATA: His labs demonstrate white count of 12, hemoglobin 17 and hematocrit 50, monos ____ by 1.5. Blood sugars 150-200. Cardiac enzymes, troponins negative. Sodium and potassium 142, 3.5, 16 and 0.8. Initial blood sugar was 548. Apparently ER had put him on insulin drip, although he has come off that with hydration and with getting his insulin. Triglycerides 982, cholesterol 300. LDL not been able to be assessed with that high triglyceride and his HDL was 30. Blood gas is 7.35, pCO2 of 45 pO2 of only 67, bicarbonate 23. Coags stable. D-dimer stable. UA unremarkable except for spilling sugar. IMPRESSION: Chest pain; leukocytosis; type 2 diabetes, poorly controlled; history of marijuana use; history of coronary artery disease, bypass and stents; history of chronic obstructive pulmonary disease; morbid obesity; hypertriglyceridemia; hypercholesterolemia; ____. Drug screen positive for marijuana. Chest x-ray was unremarkable. Possible reflects interstitial edema. Dr. Ortiz consulted Cardiology for further evaluation, make timely suggestions for this gentleman and make further evaluation on him as indicated. Try to get his blood sugars down hydrate, monitor for any other signs of chest discomfort, possible epigastric or GERD problem here. We will treat accordingly, make further evaluation and have him follow up with his bander hand and primary care physician as an outpatient. Discussed weight loss and discontinuing use of marijuana as well as trying modest exercise and weight loss after conferring with his primary care physicians. SERA ROSADO MD DR: DEREK/zuleika JOB#: [id number] / [id number]
[2019-08-25] MEDS ORDERED: INSULIN LISPRO 300 UNITS/3 ML VIAL. SQ SCH (17:00)
[2019-08-25 19:36] VITALS: BP 153/74
[2019-08-25] MEDS: INSULIN LISPRO 300 UNITS/3 ML VIAL. SQ SCH (20:46)
[2019-08-25] MEDS ORDERED: traZODone 100 MG TABLET. PO SCH (21:00)
[2019-08-25] MEDS ORDERED: ATORVASTATIN CALCIUM 20 MG TABLET PO SCH (21:00)
[2019-08-25] MEDS: PREGABALIN 75 MG CAPSULE PO SCH (21:00)
--- NOTE | 2019-08-25 21:57 | NUR ---
When I came on shift patient was very adamant regarding patients lyrica. He stated that he never got his morning dose and he states that he takes the medication 3 times daily not just once. New order noted. Gave patient night time dose of lyrica. Also patient refused his HS nitro paste stated that it was not working for his pain and he only wanted the PRN morphine. Will continue to monitor.
[2019-08-25 22:20] VITALS: BP 128/65
[2019-08-26 01:06] LABS: HEMOGLOBIN A1C 12.8 % (4.8-5.6)
[2019-08-26 05:01] VITALS: BP 149/85
[2019-08-26] MEDS: NITROGLYCERIN OINT 1 GM PACKET. TP SCH ×2 (05:05→13:26)
[2019-08-26] MEDS: metFORMIN 500 MG TABLET PO SCH (07:48)
[2019-08-26] MEDS: PREGABALIN 75 MG CAPSULE PO SCH ×2 (07:48→13:25)
[2019-08-26] MEDS: LISINOPRIL 20 MG TABLET PO SCH (07:49)
[2019-08-26] MEDS: FUROSEMIDE 20 MG/2 ML VIAL IVP SCH (07:49)
--- NOTE | 2019-08-26 07:51 | PDOC ---
EDIS DOE CLEANING TECHNICIAN 08/26/19 0750: CARDIO Progress Notes Date & Time Date of Service DATE: 08/26/19 TIME: 07:47 Time of Evaluation 07:47 Vitals Vitals Vital Signs Date Time Temp Pulse Resp B/P (MAP) Pulse Ox O2 Delivery O2 Flow Rate FiO2 08/26/19 05:01 98.0 61 20 149/85 (106) 93 Room Air Weight Weight [ ] Input and Output I.O. Intake and Output 08/26/19 07:00 Intake Total 4168 ml Output Total 350 ml Balance 3818 ml Intake Oral 1490 ml IV Total 500 ml Other 2178 ml Output Urine Total 350 ml # Voids 9 Laboratory Labs Laboratory Tests Test 08/24/19 20:27 08/24/19 20:35 08/24/19 21:50 08/24/19 22:45 White Blood Count 12.2 x10^3/uL (4.0-11.0) Red Blood Count 5.62 x10^6/uL (4.30-5.70) Hemoglobin 17.0 g/dL (13.0-17.5) Hematocrit 50.2 % (39.0-53.0) Mean Corpuscular Volume 89 fL (79-100) Mean Corpuscular Hemoglobin 30 pg (25-35) Mean Corpuscular Hemoglobin Concent 34 g/dL (31-37) Red Cell Distribution Width 14.0 % (11.5-14.5) Platelet Count 220 x10^3/uL (140-400) Neutrophils (%) (Auto) 61 % (31-73) Lymphocytes (%) (Auto) 27 % (24-48) Monocytes (%) (Auto) 10 % (0-9) Eosinophils (%) (Auto) 1 % (0-3) Basophils (%) (Auto) 1 % (0-3) Neutrophils # (Auto) 7.4 x10^3uL (1.8-7.7) Lymphocytes # (Auto) 3.3 x10^3/uL (1.0-4.8) Monocytes # (Auto) 1.2 x10^3/uL (0.0-1.1) Eosinophils # (Auto) 0.1 x10^3/uL (0.0-0.7) Basophils # (Auto) 0.1 x10^3/uL (0.0-0.2) Prothrombin Time 9.9 SEC (9.4-11.4) Prothromb Time International Ratio 1.0 (0.9-1.1) Activated Partial Thromboplast Time 28 SEC (23-33) D-Dimer (Xi) 0.36 mg/L (0.00-0.50) Sodium Level 135 mmol/L (136-145) Potassium Level 4.4 mmol/L (3.5-5.1) Chloride Level 97 mmol/L (98-107) Carbon Dioxide Level 28 mmol/L (21-32) Anion Gap 10 (6-14) Blood Urea Nitrogen 18 mg/dL (8-26) Creatinine 1.2 mg/dL (0.7-1.3) Estimated GFR (Cockcroft-Gault) 59.9 Glucose Level 548 mg/dL (70-99) Hemoglobin A1c 12.8 % (4.8-5.6) Calcium Level 9.3 mg/dL (8.5-10.1) Magnesium Level 1.8 mg/dL (1.8-2.4) Total Bilirubin 0.3 mg/dL (0.2-1.0) Direct Bilirubin 0.1 mg/dL (0.0-0.2) Aspartate Amino Transf (AST/SGOT) 26 U/L (15-37) Alanine Aminotransferase (ALT/SGPT) 41 U/L (16-63) Alkaline Phosphatase 106 U/L (46-116) Creatine Kinase 129 U/L (39-308) Troponin I Quantitative < 0.017 ng/mL (0-0.055) JB-Hgh-W-Type Natriuretic Peptide 41 pg/mL (0-124) Total Protein 8.1 g/dL (6.4-8.2) Albumin 3.6 g/dL (3.4-5.0) Triglycerides Level 982 mg/dL (0-150) Cholesterol Level 303 mg/dL (0-200) LDL Cholesterol, Calculated mg/dL (0-100) VLDL Cholesterol, Calculated mg/dL (0-40) Non-HDL Cholesterol Calculated 273 mg/dL (0-129) HDL Cholesterol 30 mg/dL (40-60) Cholesterol/HDL Ratio 10.0 Lipase 182 U/L (73-393) Thyroid Stimulating Hormone (TSH) 1.017 uIU/mL (0.358-3.740) Urine Collection Type Unknown Urine Color Yellow Urine Clarity Clear Urine pH 5.5 Urine Specific [place] <=1.005 Urine Protein Neg (NEG-TRACE) Urine Glucose (UA) >=1000 mg/dL (NEG) Urine Ketones (Stick) Neg mg/dL (NEG) Urine Blood Neg (NEG) Urine Nitrite Neg (NEG) Urine Bilirubin Neg (NEG) Urine Urobilinogen Dipstick 0.2 mg/dL (0.2 mg/dL) Urine Leukocyte Esterase Neg (NEG) Urine RBC Rare /HPF (0-2) Urine WBC Rare /HPF (0-4) Urine Bacteria Few /HPF (0-FEW) Urine Opiates Screen Neg (NEG) Urine Methadone Screen Neg (NEG) Urine Barbiturates Neg (NEG) Urine Phencyclidine Screen Neg (NEG) Urine Amphetamine/Methamphetamine Neg (NEG) Urine Benzodiazepines Screen Neg (NEG) Urine Cocaine Screen Neg (NEG) Urine Cannabinoids Screen Pos (NEG) Urine Ethyl Alcohol Neg (NEG) Blood Gas pH 7.35 (7.35-7.46) Blood Gas PCO2 45 mmHg (35-46) Blood Gas PO2 67 mmHg (71-100) Blood Gas HCO3 25 mmol/L (21-28) Arterial Bld O2 Saturation (Calc) 92 % (92-99) FiO2 21 % Glucose (Fingerstick) 457 mg/dL (70-99) Test 08/24/19 23:48 08/25/19 00:52 08/25/19 01:34 08/25/19 02:15 Glucose (Fingerstick) 364 mg/dL (70-99) 233 mg/dL (70-99) 200 mg/dL (70-99) Troponin I Quantitative < 0.017 ng/mL (0-0.055) Test 08/25/19 02:34 08/25/19 03:43 08/25/19 04:15 08/25/19 04:43 Glucose (Fingerstick) 192 mg/dL (70-99) 153 mg/dL (70-99) 151 mg/dL (70-99) White Blood Count 11.7 x10^3/uL (4.0-11.0) Red Blood Count 5.10 x10^6/uL (4.30-5.70) Hemoglobin 15.8 g/dL (13.0-17.5) Hematocrit 45.2 % (39.0-53.0) Mean Corpuscular Volume 89 fL (79-100) Mean Corpuscular Hemoglobin 31 pg (25-35) Mean Corpuscular Hemoglobin Concent 35 g/dL (31-37) Red Cell Distribution Width 13.7 % (11.5-14.5) Platelet Count 205 x10^3/uL (140-400) Neutrophils (%) (Auto) 41 % (31-73) Lymphocytes (%) (Auto) 44 % (24-48) Monocytes (%) (Auto) 13 % (0-9) Eosinophils (%) (Auto) 2 % (0-3) Basophils (%) (Auto) 0 % (0-3) Neutrophils # (Auto) 4.8 x10^3uL (1.8-7.7) Lymphocytes # (Auto) 5.2 x10^3/uL (1.0-4.8) Monocytes # (Auto) 1.5 x10^3/uL (0.0-1.1) Eosinophils # (Auto) 0.2 x10^3/uL (0.0-0.7) Basophils # (Auto) 0.0 x10^3/uL (0.0-0.2) Sodium Level 142 mmol/L (136-145) Potassium Level 3.5 mmol/L (3.5-5.1) Chloride Level 105 mmol/L (98-107) Carbon Dioxide Level 26 mmol/L (21-32) Anion Gap 11 (6-14) Blood Urea Nitrogen 16 mg/dL (8-26) Creatinine 0.8 mg/dL (0.7-1.3) Estimated GFR (Cockcroft-Gault) 95.6 Glucose Level 160 mg/dL (70-99) Calcium Level 8.0 mg/dL (8.5-10.1) Test 08/25/19 05:35 08/25/19 06:38 08/25/19 07:48 08/25/19 07:49 Glucose (Fingerstick) 113 mg/dL (70-99) 153 mg/dL (70-99) 155 mg/dL (70-99) Troponin I Quantitative < 0.017 ng/mL (0-0.055) Test 08/25/19 09:04 08/25/19 10:00 08/25/19 11:12 08/25/19 11:58 Glucose (Fingerstick) 202 mg/dL (70-99) 181 mg/dL (70-99) 189 mg/dL (70-99) 171 mg/dL (70-99) Test 08/25/19 17:11 08/25/19 19:42 Glucose (Fingerstick) 306 mg/dL (70-99) 297 mg/dL (70-99) Physical Exams HEENT: Neck Supple W Full Motion Chest: Symmetric Lungs: Clear to Auscultation Heart: S1S2, RRR Abdomen: Soft N/T Extremities: No Edema Neurology: alert, oriented, follow commands Assessment Assessment 1. Chest pain, atypical. AMI ruled out. Most probably MSK in origin. Echo with preserved LV systolic function 2. Mild probable diastolic CHF; better compensated following mild diuresis 3. CAD s/p previous CABG 4. Hypertension; controlled 5. Hyperlipidemia; statin 6. Diabetes, II; uncontrolled. A1C 12.8. as per PCP Recommendations Secondary prevention measures; ASA, statin, fenofibrate, ACEi No BB with mild bradycardia Needs to establish outpatient gin inspector Consider outpatient ischemic evaluation given risk factors May discharge from a CV standpoint and d/u in our office with Dr. Ortiz in 6-8 weeks. STONEY GARVEY MD 08/26/19 0995: CARDIO Progress Notes Assessment Assessment Patient seen and examined. Agree with PLAN CONSULTANT's assessment and plan. CP with atypical features. OR ruled out 2D echo showed normal LVF Plan ischemic evaluation as outpatient EDIS DOE APRN Aug 26, 2019 07:50 STONEY GARVEY MD Aug 26, 2019 16:44
[2019-08-26] MEDS: INSULIN LISPRO 300 UNITS/3 ML VIAL. SQ SCH ×3 (07:55→16:59)
[2019-08-26] MEDS ORDERED: ASPIRIN ENTERIC COATED 81 MG TABLET.DR. PO SCH (08:00)
[2019-08-26] MEDS ORDERED: FENOFIBRATE NANOCRYSTALLIZED 145 MG TABLET PO SCH (09:00)
[2019-08-26] MEDS: INSULIN GLARGINE SYRINGE. SQ SCH (09:37)
[2019-08-26 10:30] VITALS: BP 125/69
--- NOTE | 2019-08-26 14:32 | CARD ---
MR#: [id number] Date of Study: 08/26/2019 Ordering Physician: SERA ROSADO, Referring Physician: SERA ROSADO, Tech: Tessy Bennett RDCS APPROVED REPORT EXAM: Two-dimensional and M-mode echocardiogram with Doppler and color Doppler. INDICATION Congestive Heart Failure Surgery/Intervention CABG: Date: 2005 2D DIMENSIONS RVDd2.8 (2.9-3.5cm)Left Atrium(2D)3.9 (1.6-4.0cm) IVSd1.4 (0.7-1.1cm)Aortic Root(2D)2.9 (2.0-3.7cm) LVDd4.1 (3.9-5.9cm)PWd1.2 (0.7-1.1cm) LVDs2.8 (2.5-4.0cm)FS (%) 31.0 % SV44.1 mlLVEF(%)59.2 (>50%) Aortic Valve AoV Peak Killian.194.9cm/sAoV VTI32.9cm AO Peak GR.15.2mmHgAO Mean GR.8mmHg SEAN (VTI)3.25cm2 Mitral Valve MV E Igkaczwv75.9cm/sMV DECEL [id number] MV A Ddfpqshn186.9cm/sE/A Ratio0.9 Tricuspid Valve TR P. Jxwwhwtm474zy/sRAP PQIEYVOB0nxEt TR Peak Gr.70kvKoBVMS21nhYf LEFT VENTRICLE The left ventricle is normal size. There is mild concentric left ventricular hypertrophy. The left ve ntricular systolic function is normal and the ejection fraction is within normal range. The Ejection Fraction is 55-60%. There is normal LV segmental wall motion. Transmitral Doppler flow pattern is Gra de I-abnormal relaxation pattern. RIGHT VENTRICLE The right ventricle is mildly to moderately dilated. The right ventricular systolic function is sree l. ATRIA The left atrium size is normal. The right atrium size is normal. The interatrial septum is intact wit h no evidence for an atrial septal defect or patent foramen ovale as noted on 2-D or Doppler imaging. AORTIC VALVE The aortic valve is not well visualized but appears to be functioning normally by Doppler interrogati on. Doppler and Color Flow revealed no significant aortic regurgitation. There is no significant aort ic valvular stenosis. MITRAL VALVE The mitral valve is calcified but opens well. Mitral annular calcification is mild. There is no evide nce of mitral valve prolapse. There is no mitral valve stenosis. Doppler and Color Flow revealed no m itral valve regurgitation noted. TRICUSPID VALVE The tricuspid valve is normal in structure and function. Doppler and Color Flow revealed physiologica l tricuspid regurgitation. The PA pressure was estimated at 20 mmHg. There is no tricuspid valve sten osis. PULMONIC VALVE The pulmonic valve is not well visualized. Doppler and Color Flow revealed no pulmonic valvular regur gitation. There is no pulmonic valvular stenosis. GREAT VESSELS The aortic root is normal in size. The ascending aorta is normal in size. The IVC is normal in size a nd collapses >50% with inspiration. PERICARDIAL EFFUSION There is no evidence of significant pericardial effusion. Critical Notification Critical Value: No <Conclusion> The left ventricular systolic function is normal and the ejection fraction is within normal range. Th e Ejection Fraction is 55-60%. There is normal LV segmental wall motion. The right ventricle is mildly to moderately dilated. Signed by : Bennie Ortiz, Electronically Approved : 08/26/2019 14:32:13
--- NOTE | 2019-08-26 16:07 | DS ---
DATE OF DISCHARGE: HOSPITAL COURSE: The patient is a 69-year-old male patient, who presented to the Emergency Room with chest pain, started an hour prior to admission. The pain is mostly in the left pectoral and sternal area. The pain is about 9/10. The patient says that it has been pretty constant for the past. Previous history of heart attack in the past. The patient has had bypass surgery in . He also complained of mild shortness of breath. The patient was admitted for further evaluation and to rule out myocardial infarction. In fact, he has 3 sets of cardiac enzymes that show that his troponin was less than 0.017. His lipid profile shows that his serum triglyceride was extremely high at 982. Total cholesterol was 303 and HDL was 30 and the ratio was 10. His lipase was 182 and TSH was 1.017. His blood sugar was also extremely high. His hemoglobin A1c was 12.8, ____. The patient is very noncompliant with medication and does not follow or keep the appointment with his modern dancer. In any case, we spoke with the modern dancer and the plan was to do an echocardiogram and to discharge him after that. PHYSICAL EXAMINATION: GENERAL: When I saw him this morning, he was resting slightly propped up in bed, in no apparent respiratory distress. No pallor, jaundice, cyanosis, or thyromegaly. No jugular venous distention. No limb edema. VITAL SIGNS: His heart rate was 69, blood pressure was 125/69, temperature was 98, respiratory rate 20, and oxygen saturation was 94%. HEAD, EYES, EARS, NOSE, AND THROAT: Showed normocephalic and atraumatic. NECK: Supple. HEART: Showed normal first and second heart sounds. No gallop or murmur. CHEST: Clear to auscultation. No crepitation or rhonchi. ABDOMEN: Distended, soft, and nontender. No guarding or rigidity. No organomegaly. All hernial orifice intact and bowel sounds normal. NEUROLOGIC: He was grossly intact. LABORATORY WORK: Showed his serum sodium was 142, potassium 3.5, chloride 105, bicarbonate 26, anion gap of 11, BUN 16, and creatinine 0.8. Estimated GFR was 195 mL per minute. His glucose was 160. Calcium was 8. His white cell count was 11,700, hemoglobin 15.8, hematocrit 45, MCV 89, and platelet count of 205,000 with normal manual differential. His prothrombin time was 9.9, INR of 1, aPTT was 28, and D-dimer was 0.36. He has 3 sets of cardiac enzyme, all of them showed troponin to be less than 0.017. Urinalysis was essentially unremarkable and tox screen was positive for cannabinoids. DISCHARGE MEDICATIONS: The patient was discharged home to continue on his fenofibrate 145 mg daily, aspirin 81 mg once a day, and pregabalin 150 mg 3 times a day. He is on atorvastatin 40 mg at bedtime, trazodone 100 mg at bedtime, furosemide 20 mg once a day, metformin 1000 mg daily, Lantus 70 units at bedtime, and lisinopril 20 mg once a day and nitroglycerin that was actually discontinued. FINAL DISCHARGE DIAGNOSES: 1. Chest pain, atypical, acute myocardial infarction is ruled out. 2. Coronary artery disease, status post CABG, hypertension, hyperlipidemia, type 2 diabetes poorly controlled with a hemoglobin A1c of 12.8, hyperlipidemia, poorly controlled, and noncompliance with medication and appointment. FABIAN GLASS MD DR: GERARD/zuleika JOB#: [id number] / [id number]
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
--- NOTE | 2019-08-26 17:46 | NUR ---
NURSING NOTE DISCHARGE PT WAS TOLD NUMEROUS TIMES TO SIT IN HIS ROOM UNTIL HIS SON CAME IN TO PICK HIM UP. THIS NURSE WENT INTO ANOTHER ROOM TO DISCHARGE ANOTHER PATIENT, AND WHEN THIS NURSE RETURNED, PT WAS NOT IN HIS ROOM. PHONED SECURITY TO ASSESS CAMERAS. PT WAS SEEN WALKING OUT THE FRONT DOOR. PHONED PT SON, PT SON STATES HE PULLED UP TO THE HOSPITAL AND PT WAS WALKING OUTSIDE SO HE ASSUMED HE WAS ALREADY CHECKED OUT. PT SON WILL COME BACK TOMORROW TO HAT LACER PT PAPERWORK. ARIANNA ROSEN.
--- NOTE | 2019-08-27 13:14 | NUR ---
NURSING NOTE PT SON CAME IN TODAY TO DIRECTOR OF EVENT SALES PT DISCHARGE INFORMATION. ARIANNA ROSEN.
--- NOTE | 2019-08-30 08:53 | EKG ---
[address] [address] Test Date: 2019-08-24 Test Time: 20:21:25 Pat Name: SHARONDA DO Department: Room: 122 A Gender: M Entry Level Lab Technician: : 1950 Requested By: FABIAN GLASS Order Number: [id number] Reading MD: Bennie Ortiz MD Measurements Intervals Amber Rate: 68 P: 39 [place]: 166 QRS: 51 QRSD: 92 T: -171 QT: 456 QTc: 490 Interpretive Statements SINUS RHYTHM Electronically Signed On 09-19-2019 16:47:37 AXMINSTER RUG SETTER by Bennie Ortiz MD
== END 2019-08-26 17:53 | disposition home or self-care (01) | DRG 205 ==
LOC: ER 20:15 → 1 SOUTH 23:14
PROVIDERS: ADMIT Family Medicine; ATTEND Internal Medicine
DX: M94.0 Chondrocostal junction syndrome [Tietze] (principal); E11.01 Type 2 diabetes mellitus with hyperosmolarity with coma; R07.89 Other chest pain; F12.90 Cannabis use, unspecified, uncomplicated; I11.0 Hypertensive heart disease with heart failure; I50.9 Heart failure, unspecified; I25.10 Atherosclerotic heart disease of native coronary artery without angina pectoris; J44.9 Chronic obstructive pulmonary disease, unspecified; K21.9 Gastro-esophageal reflux disease without esophagitis; E66.01 Morbid (severe) obesity due to excess calories; E78.00 Pure hypercholesterolemia, unspecified; E78.1 Pure hyperglyceridemia; E78.5 Hyperlipidemia, unspecified; E11.65 Type 2 diabetes mellitus with hyperglycemia; D72.829 Elevated white blood cell count, unspecified; M13.0 Polyarthritis, unspecified; Z87.891 Personal history of nicotine dependence; Z95.5 Presence of coronary angioplasty implant and graft; Z95.1 Presence of aortocoronary bypass graft; Z91.14 Patient's other noncompliance with medication regimen; I25.2 Old myocardial infarction; Z68.33 Body mass index [BMI] 33.0-33.9, adult
CPT/HCPCS: 36415; 36600; 71045; 80048; 80061; 80076; 80307; 81001; 82550; 82803; 82947; 83036; 83690; 83735; 83880; 84443; 84484; 85025; 85379; 85610; 85730; 93005; 93306; 94640; 96361; 96365; 96366; 96372; 96375; J1650; J1815; J2270; J7120; J7620; 99285-25; J7030

== ENCOUNTER 2019-10-05 15:21 | Emergency (ER) | payer MEDICARE ==
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
[2019-10-05 16:42] LABS: BASO # 0.1 x10^3/uL (0.0-0.2); BASO % 1 % (0-3); EOS # 0.1 x10^3/uL (0.0-0.7); EOS % 1 % (0-3); HEMATOCRIT 52.6 % (39.0-53.0); LYMPH # 2.7 x10^3/uL (1.0-4.8); LYMPH % 21 % (24-48); MEAN CORPUSCULAR HEMOGLOBIN 30 pg (25-35); MEAN CORPUSCULAR HGB CONC 34 g/dL (31-37); MEAN CORPUSCULAR VOLUME 88 fL (79-100); MONO # 1.2 x10^3/uL (0.0-1.1); MONO % 10 % (0-9); NEUT # 8.8 x10^3uL (1.8-7.7); NEUT % 69 % (31-73); PLATELET COUNT 234 x10^3/uL (140-400); RED BLOOD COUNT 5.99 x10^6/uL (4.30-5.70); RED CELL DISTRIBUTION WIDTH 14.3 % (11.5-14.5); WHITE BLOOD COUNT 12.8 x10^3/uL (4.0-11.0)
[2019-10-05 16:49] LABS: CALCIUM 9.9 mg/dL (8.5-10.1); GFR 73.9
[2019-10-05 16:54] LABS: ALBUMIN 4.2 g/dL (3.4-5.0); ALBUMIN/GLOBULIN RATIO 0.9 (1.0-1.7); TOTAL BILIRUBIN 0.3 mg/dL (0.2-1.0); TOTAL PROTEIN 9.1 g/dL (6.4-8.2)
[2019-10-05 16:57] LABS: POTASSIUM 4.1 mmol/L (3.5-5.1)
[2019-10-05 17:02] VITALS: BP 190/142
== END 2019-10-05 16:52 | disposition home or self-care (01) ==
LOC: ER 15:21
DX: Z04.1 Encounter for examination and observation following transport accident (principal); M19.90 Unspecified osteoarthritis, unspecified site; I25.810 Atherosclerosis of coronary artery bypass graft(s) without angina pectoris; I11.0 Hypertensive heart disease with heart failure; I50.9 Heart failure, unspecified; J44.9 Chronic obstructive pulmonary disease, unspecified; E11.9 Type 2 diabetes mellitus without complications; K21.9 Gastro-esophageal reflux disease without esophagitis; Z98.61 Coronary angioplasty status; Z87.891 Personal history of nicotine dependence; V49.9XXA Car occupant (driver) (passenger) injured in unspecified traffic accident, initial encounter; Y93.89 Activity, other specified; Y92.488 Other paved roadways as the place of occurrence of the external cause; Y99.8 Other external cause status
CPT/HCPCS: 36415; 80053; 85025; 99284

== ENCOUNTER 2019-10-19 14:06 | Emergency (ER) | payer OTHER, MEDICARE ==
[~2019-10-19] VITALS: Ht 175.3 cm; Wt 106.0 kg
[2019-10-19] MEDS ORDERED: ASPIRIN 325 MG TABLET PO ONE (14:15)
[2019-10-19] MEDS ORDERED: FAMOTIDINE 20 MG/2 ML VIAL IVP ONE (14:30)
[2019-10-19] MEDS ORDERED: IV NORMAL SALINE 1,000ML 1,000 ML IV ONE (14:30)
[2019-10-19] MEDS ORDERED: FAMOTIDINE 20 MG/2 ML VIAL ONE (14:35)
--- NOTE | 2019-10-19 14:39 | PHYS DOC ---
Past History Past Medical History: CAD, Diabetes, High Cholesterol, Hypertension Past Surgical History: Other Additional Past Surgical Histo: BIPASS X5 Smoking: Cigarettes, Quit Greater Than 1 Year Alcohol Use: None Drug Use: None Adult General Chief Complaint Chief Complaint: CHEST PAIN HPI HPI Patient is a 69-year-old male with history hypertension, hyperlipidemia, diabetes presents to the ED with chest pain. Onset was yesterday, location is epigastric and duration is constant. Symptoms also include cough. Pain is rated as a 9 out of 10. Patient denies nausea, vomiting, diarrhea, shortness of breath, fever, lower extremity edema, and trauma. 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 Patient states that he is unsure which medications he is currently taking. Denies fever/chills. Review of Systems Review of Systems Constitutional: Denies fever or chills Eyes: Denies redness or eye pain HENT: Denies nasal congestion or sore throat Respiratory: Denies shortness of breath, reports cough. Cardiovascular: Reports chest pain, denies palpitations GI: Reports epigastric abdominal pain; denies nausea, or vomiting : Denies dysuria or hematuria Musculoskeletal: Denies back pain or joint pain Integument: Denies rash or skin lesions Neurologic: Denies headache, focal weakness or sensory changes Complete systems were reviewed and found to be within normal limits, except as documented in this note. Current Medications Current Medications Current Medications Medications (Trade) Dose Ordered Sig/Jeffrey Start Time Stop Time Status Last Admin Dose Admin Aspirin ([place] Aspirin) 325 mg 1X ONCE 10/19/19 14:15 10/19/19 14:21 DC 10/19/19 14:25 325 MG Famotidine (Pepcid Vial) 20 mg 1X ONCE 10/19/19 14:30 10/19/19 14:34 DC Sodium Chloride 1,000 ml @ 1,000 mls/hr 1X ONCE 10/19/19 14:30 10/19/19 15:29 Allergies Allergies Allergies Coded Allergies Type Severity Reaction Last Updated Verified No Known Drug Allergies 09/05/18 No Physical Exam Physical Exam Constitutional: Well developed, well nourished, no acute distress, non-toxic appearance HENT: Normocephalic, atraumatic, oropharynx moist Eyes: Conjunctiva normal, no discharge Neck: Normal range of motion, no tenderness, supple Cardiovascular: Heart rate normal, regular rhythm. Midline sternal incision scar consistent with prior bypass surgery. Lungs & Thorax: Bilateral breath sounds clear to auscultation, no wheezing. Chest pain is reproducible with palpation of the left chest wall and lower sternal region. Abdomen: Soft, epigastric and LUQ tenderness Skin: Warm, dry, no erythema, no rash Back: No tenderness, no CVA tenderness Extremities: No tenderness, ROM intact, no edema Neurologic: Alert and oriented X 3, no focal deficits noted Psychologic: Affect normal, judgement normal EKG EKG @1414. NSR at 64bpm. No STEMI. Flattened T waves. Radiology/Procedures Radiology/Procedures PROCEDURE: CT CHEST ABD PELVIS W/CONTRAST Exam: CT of chest, abdomen and pelvis with contrast INDICATION: Chest pain, elevated lipase TECHNIQUE: Sequential axial images through the chest, abdomen and pelvis obtained following the administration of 75 mL of Omni 300 IV contrast. Sagittal and coronal reformatted images were reconstructed from the axial data and reviewed. Comparisons: None FINDINGS: Visualized portions of the thyroid are unremarkable. No enlarged mediastinal lymph nodes are identified. Heart size is normal. Mild coronary artery calcifications are noted. Thoracic aorta has a normal course and caliber. Pulmonary artery is not enlarged. Airways are patent. No consolidation or pneumothorax. Mild intralobular septal thickening is noted prominently at the lung bases. No suspicious lung nodules are identified. No pleural effusion or thickening. Diffuse hepatic steatosis. Spleen, and adrenals are unremarkable. There is very mild haziness of the fat adjacent to the pancreas. No peripancreatic fluid collection or ductal dilatation. Kidneys demonstrate symmetric enhancement. No perinephric inflammation or hydronephrosis. No renal or ureteral calculi are identified. Bladder is partially distended and appears thin-walled. Prostate is not enlarged. Few scattered diverticula are noted within the descending and sigmoid colon without evidence of acute diverticulitis. Appendix is normal. No free intra-abdominal air or fluid. No obstruction. Abdominal aorta has a normal course and caliber. Abdominal vasculature is patent. No suspicious osseous lesions or acute fractures. IMPRESSION: 1. Mild fat stranding surrounding the pancreas which would be consistent with pancreatitis. No adjacent fluid collection or ductal dilatation. 2. No acute process identified within the chest. 3. Mild coronary artery calcifications. 4. Diffuse hepatic steatosis. 5. Diverticulosis without evidence of acute diverticulitis. Exposure: One or more of the following in the visualized dose reduction techniques were utilized for this examination: 1. Automated exposure control 2. Adjustment of the MA and/or KV according to patient size 3. Use of iterative of reconstructive technique Electronically signed by: Adalid Starks MD (10/19/2019 4:36 PM) [id number] Course & Med Decision Making Course & Med Decision Making Pertinent Labs and Imaging studies reviewed. (See chart for details) Patient with history of hypertension, hyperlipidemia, diabetes presents to ED with chest pain since yesterday. Patient also with lower chest, epigastric and LUQ pain on palpation. Labs remarkable for elevated lipase and blood sugar. Denies ETOH use. Pain addressed. IVF hydration given. Hyperglycemia addressed. Initial troponin WNL. D-dimer also WNL. HEART score: [address] Looney, (hospitalist at [facility]) regarding the case. Recommends patient be transferred to [facility] due to lack of GI consult here at [facility]. CT chest/abd/pelvis with findings consistent for acute pancreatitis. Discussed with Dr. Moncada (hospitalist at [facility]) who is in agreement with transfer for admission. Discussed findings and plan with patient, who acknowledges understanding and agreement. Dragon Disclaimer Dragon Disclaimer This electronic medical record was generated, in whole or in part, using a voice recognition dictation system. Departure Departure: Impression: Primary Impression: Pancreatitis Additional Impressions: Atypical chest pain Hyperglycemia Disposition: 05 TRANSFER OTHER ([facility]) Condition: STABLE Referrals: SABINO GROVER MD (PCP) HEART Score for Chest Pain PTs The HEART Score for CP Pts HEART Score for Chest Pain: HEART Score for Chest Pain Response (Comments) Value History Moderately Suspicious 1 ECG Normal 0 Age > 65 2 Risk Factors >3 Risk Factors or Hx CAD 2 Troponin < Normal Limit 0 Total 5 Risk Factors: Risk Factors: DM, Current or recent (<one month) smoker, HTN, HLP, family history of CAD, obesity. Risk Scores: Score 0 - 3: 2.5% MACE over next 6 weeks - Discharge Home Score 4 - 6: 20.3% MACE over next 6 weeks - Admit for Clinical Observation Score 7 - 10: 72.7% MACE over next 6 weeks - Early Invasive Strategies Problem Qualifiers Primary Impression: Pancreatitis Chronicity: acute Pancreatitis type: unspecified pancreatitis type Acute pancreatitis complication: unspecified Qualified Codes: K85.90 - Acute pancreatitis without necrosis or infection, unspecified JOSHUA AMOS DO Oct 19, 2019 14:39
[2019-10-19 14:40] LABS: CALCIUM 9.1 mg/dL (8.5-10.1); GFR 73.9; POTASSIUM 3.8 mmol/L (3.5-5.1)
[2019-10-19 14:55] LABS: ALBUMIN 3.8 g/dL (3.4-5.0); ALBUMIN/GLOBULIN RATIO 0.9 (1.0-1.7); MAGNESIUM 1.8 mg/dL (1.8-2.4); TOTAL BILIRUBIN 0.4 mg/dL (0.2-1.0)
[2019-10-19 15:07] LABS: BASO # 0.1 x10^3/uL (0.0-0.2); BASO % 1 % (0-3); EOS # 0.1 x10^3/uL (0.0-0.7); EOS % 1 % (0-3); HEMATOCRIT 51.3 % (39.0-53.0); HEMOGLOBIN 17.1 g/dL (13.0-17.5); LYMPH # 3.6 x10^3/uL (1.0-4.8); LYMPH % 32 % (24-48); MEAN CORPUSCULAR HEMOGLOBIN 30 pg (25-35); MEAN CORPUSCULAR HGB CONC 33 g/dL (31-37); MEAN CORPUSCULAR VOLUME 89 fL (79-100); MONO # 1.2 x10^3/uL (0.0-1.1); MONO % 10 % (0-9); NEUT # 6.5 x10^3uL (1.8-7.7); NEUT % 57 % (31-73); PLATELET COUNT 236 x10^3/uL (140-400); RED BLOOD COUNT 5.73 x10^6/uL (4.30-5.70); RED CELL DISTRIBUTION WIDTH 14.3 % (11.5-14.5); WHITE BLOOD COUNT 11.4 x10^3/uL (4.0-11.0)
[2019-10-19] MEDS ORDERED: INSULIN REGULAR 100 UNIT/ML 3ML VIAL. SQ ONE (15:30)
[2019-10-19] MEDS ORDERED: IOHEXOL 300 MG/ML 75 ML VIAL. IV ONE (15:45)
[2019-10-19 15:46] VITALS: BP 162/72
--- NOTE | 2019-10-19 16:39 | RAD ---
Exam: CT of chest, abdomen and pelvis with contrast INDICATION: Chest pain, elevated lipase TECHNIQUE: Sequential axial images through the chest, abdomen and pelvis obtained following the administration of 75 mL of Omni 300 IV contrast. Sagittal and coronal reformatted images were reconstructed from the axial data and reviewed. Comparisons: None FINDINGS: Visualized portions of the thyroid are unremarkable. No enlarged mediastinal lymph nodes are identified. Heart size is normal. Mild coronary artery calcifications are noted. Thoracic aorta has a normal course and caliber. Pulmonary artery is not enlarged. Airways are patent. No consolidation or pneumothorax. Mild intralobular septal thickening is noted prominently at the lung bases. No suspicious lung nodules are identified. No pleural effusion or thickening. Diffuse hepatic steatosis. Spleen, and adrenals are unremarkable. There is very mild haziness of the fat adjacent to the pancreas. No peripancreatic fluid collection or ductal dilatation. Kidneys demonstrate symmetric enhancement. No perinephric inflammation or hydronephrosis. No renal or ureteral calculi are identified. Bladder is partially distended and appears thin-walled. Prostate is not enlarged. Few scattered diverticula are noted within the descending and sigmoid colon without evidence of acute diverticulitis. Appendix is normal. No free intra-abdominal air or fluid. No obstruction. Abdominal aorta has a normal course and caliber. Abdominal vasculature is patent. No suspicious osseous lesions or acute fractures. IMPRESSION: 1. Mild fat stranding surrounding the pancreas which would be consistent with pancreatitis. No adjacent fluid collection or ductal dilatation. 2. No acute process identified within the chest. 3. Mild coronary artery calcifications. 4. Diffuse hepatic steatosis. 5. Diverticulosis without evidence of acute diverticulitis. Exposure: One or more of the following in the visualized dose reduction techniques were utilized for this examination: 1. Automated exposure control 2. Adjustment of the MA and/or KV according to patient size 3. Use of iterative of reconstructive technique Electronically signed by: Adalid Starks MD (10/19/2019 4:36 PM) [facility]
--- NOTE | 2019-10-19 17:06 | EKG ---
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
== END 2019-10-19 16:55 | disposition short-term general hospital (02) ==
LOC: ER 14:06
DX: K85.90 Acute pancreatitis without necrosis or infection, unspecified (principal); R07.89 Other chest pain; E11.65 Type 2 diabetes mellitus with hyperglycemia; E78.00 Pure hypercholesterolemia, unspecified; I10 Essential (primary) hypertension; I25.10 Atherosclerotic heart disease of native coronary artery without angina pectoris; Z87.891 Personal history of nicotine dependence
CPT/HCPCS: 36415; 71260; 74177; 80053; 82553; 82947; 83690; 83735; 83880; 85025; 85379; 85610; 85730; 93005; 96361; 96372; 96374; 96375; 99285; G0480; J1815; J3010; J3490; Q9967; J7030

== ENCOUNTER 2019-12-02 14:34 | Emergency (ER) | payer MEDICARE, OTHER ==
[2019-12-02] MEDS ORDERED: IPRATRPIUM/ALBUTEROL 0.5/2.5MG 3 ML NEBU. NEB ONE (14:45)
[2019-12-02] MEDS ORDERED: ASPIRIN 81 MG TAB.CHEW PO ONE (15:00)
[2019-12-02] MEDS: NITROGLYCERIN SUBLINGUAL 0.4 MG BOTTLE OF 25. SL PRN ×2 (15:02→15:34)
[2019-12-02 15:07] LABS: BASO # 0.1 x10^3/uL (0.0-0.2); BASO % 1 % (0-3); EOS # 0.1 x10^3/uL (0.0-0.7); EOS % 1 % (0-3); HEMOGLOBIN 17.8 g/dL (13.0-17.5); LYMPH # 3.4 x10^3/uL (1.0-4.8); LYMPH % 28 % (24-48); MEAN CORPUSCULAR HEMOGLOBIN 30 pg (25-35); MEAN CORPUSCULAR HGB CONC 34 g/dL (31-37); MEAN CORPUSCULAR VOLUME 88 fL (79-100); MONO # 1.1 x10^3/uL (0.0-1.1); MONO % 9 % (0-9); NEUT # 7.4 x10^3uL (1.8-7.7); NEUT % 61 % (31-73); PLATELET COUNT 276 x10^3/uL (140-400); RED CELL DISTRIBUTION WIDTH 14.5 % (11.5-14.5)
--- NOTE | 2019-12-02 15:09 | RAD ---
Examination: PORTABLE CHEST 1V History: Chest pain Comparison/Correlation: 10/19/2019 CT chest abdomen pelvis with contrast Findings: Portable chest x-ray exam was obtained. Heart size and pulmonary vasculature are normal. No infiltrate or pleural effusion. Sternal wires are present. Minimal left costophrenic sulcus pleural thickening or possible very small pleural effusion noted. Bony structures are unremarkable for patient's age. Impression: No focal infiltrate. Minimal left costophrenic angle blunting which probably represents pleural thickening is similar upon correlation with the prior CT exam. Electronically signed by: Kale Montalvo MD (12/02/2019 3:06 PM) [id number]
--- NOTE | 2019-12-02 15:13 | PHYS DOC ---
Past History Past Medical History: CAD, Diabetes, High Cholesterol, Hypertension Past Surgical History: Colectomy, Other Additional Past Surgical Histo: BIPASS X5 Smoking: Cigarettes, Quit Greater Than 1 Year Alcohol Use: None Drug Use: None Adult General Chief Complaint Chief Complaint: CHEST PAIN HPI HPI 69-year-old male presents with chest pain. The patient states the pain started yesterday afternoon and has been constant. It is now a 9 out of 10. He was not doing anything in particular when it started. He denies falls or trauma. He has a history of 5 vessel bypass. He does not take any medications. He is also supposed to take insulin, but does not take that because it is too expensive. Nothing seems to make the pain better or worse. He denies shortness of breath or diaphoresis. He does not take aspirin at home. Review of Systems Review of Systems Constitutional: Denies fever or chills [] Eyes: Denies change in visual acuity, redness, or eye pain [] HENT: Denies nasal congestion or sore throat [] Respiratory: Denies cough or shortness of breath [] Cardiovascular: No additional information not addressed in HPI [] GI: Denies abdominal pain, nausea, vomiting, bloody stools or diarrhea [] : Denies dysuria or hematuria [] Musculoskeletal: Denies back pain or joint pain [] Integument: Denies rash or skin lesions [] Neurologic: Denies headache, focal weakness or sensory changes [] Endocrine: Denies polyuria or polydipsia [] All other systems were reviewed and found to be within normal limits, except as documented in this note. Current Medications Current Medications Current Medications Medications (Trade) Dose Ordered Sig/Jeffrey Start Time Stop Time Status Last Admin Dose Admin Albuterol/ Ipratropium (Duoneb) 3 ml 1X ONCE 12/02/19 14:45 12/02/19 14:46 DC 12/02/19 15:06 3 ML Aspirin (Children'S Aspirin) 324 mg 1X ONCE 12/02/19 15:00 12/02/19 15:01 DC 12/02/19 15:00 324 MG Nitroglycerin (Nitrostat) 0.4 mg PRN Q5MIN PRN 12/02/19 15:00 12/02/19 15:02 0.4 MG Allergies Allergies Allergies Coded Allergies Type Severity Reaction Last Updated Verified No Known Drug Allergies 09/05/18 No Physical Exam Physical Exam Constitutional: Well developed, well nourished, no acute distress, non-toxic appearance. [] HENT: Normocephalic, atraumatic, bilateral external ears normal, oropharynx moist, no oral exudates, nose normal. [] Eyes: PERRLA, EOMI, conjunctiva normal, no discharge. [] Neck: Normal range of motion, no tenderness, supple, no stridor. [] Cardiovascular: Heart rate regular rhythm, no murmur [] Lungs & Thorax: Bilateral breath sounds clear to auscultation [] Abdomen: Bowel sounds normal, soft, no tenderness, no masses, no pulsatile masses. [] Skin: Old scar from open heart surgery[] Back: No tenderness, no CVA tenderness. [] Extremities: No tenderness, no cyanosis, no clubbing, ROM intact, no edema. [] Neurologic: Alert and oriented X 3, normal motor function, normal sensory function, no focal deficits noted. [] Psychologic: Affect normal, judgement normal, mood normal. [] Current Patient Data Vital Signs Vital Signs Date Time Temp Pulse Resp B/P (MAP) Pulse Ox O2 Delivery O2 Flow Rate FiO2 12/02/19 15:06 90 Room Air 12/02/19 15:03 71 18 141/90 (107) EKG EKG Sinus rhythm, rate 77, normal axis, no ST elevation or depression[] Radiology/Procedures Radiology/Procedures [] Impressions: Examination: PORTABLE CHEST 1V History: Chest pain Comparison/Correlation: 10/19/2019 CT chest abdomen pelvis with contrast Findings: Portable chest x-ray exam was obtained. Heart size and pulmonary vasculature are normal. No infiltrate or pleural effusion. Sternal wires are present. Minimal left costophrenic sulcus pleural thickening or possible very small pleural effusion noted. Bony structures are unremarkable for patient's age. Impression: No focal infiltrate. Minimal left costophrenic angle blunting which probably represents pleural thickening is similar upon correlation with the prior CT exam. Electronically signed by: Kale Ray MD (12/02/2019 3:06 PM) [id number] DICTATED AND SIGNED BY: KALE RAY MD DATE: 12/02/19 1506 CC: PAL HUTCHINSON DO; SABINO GROVER MD ~ Course & Med Decision Making Course & Med Decision Making Pertinent Labs and Imaging studies reviewed. (See chart for details) The patient's EKG is negative for acute findings. His chest x-ray is negative for acute findings. Prior to the patient's labs coming back, he put his clothes on and said he was leaving. We explained to him that his workup is not complete and it was dangerous for him to leave. The patient did not care and wanted to leave. He was again explained the risks of leaving including . He chose to leave AMA. His labs did end up showing elevated blood sugar with a slightly elevated anion gap. His troponin was negative. His urinalysis was positive for marijuana. The patient left AMA. [] Dragon Disclaimer Dragon Disclaimer This electronic medical record was generated, in whole or in part, using a voice recognition dictation system. The HEART Score for CP Pts HEART Score for Chest Pain: HEART Score for Chest Pain Response (Comments) Value History Moderately Suspicious 1 ECG Nonspecific Repolarizatio 1 Age > 65 2 Risk Factors >3 Risk Factors or Hx CAD 2 Total 6 Risk Factors: Risk Factors: DM, Current or recent (<one month) smoker, HTN, HLP, family history of CAD, obesity. Risk Scores: Score 0 - 3: 2.5% MACE over next 6 weeks - Discharge Home Score 4 - 6: 20.3% MACE over next 6 weeks - Admit for Clinical Observation Score 7 - 10: 72.7% MACE over next 6 weeks - Early Invasive Strategies Departure Departure: Impression: Primary Impression: Chest pain, precordial Disposition: 07 AGAINST MEDICAL ADVICE Admitting Physician: Armando Sánchez Condition: GUARDED Referrals: SABINO GROVER MD (PCP) PAL HUTCHINSON DO Dec 02, 2019 15:13
[2019-12-02 15:14] LABS: GFR 73.9
[2019-12-02 15:23] LABS: INFLUENZA A PATIENT NEGATIVE (NEGATIVE); INFLUENZA B PATIENT NEGATIVE (NEGATIVE)
[2019-12-02 15:28] LABS: ALBUMIN 3.6 g/dL (3.4-5.0); ALBUMIN/GLOBULIN RATIO 0.8 (1.0-1.7); TOTAL BILIRUBIN 0.4 mg/dL (0.2-1.0)
[2019-12-02 15:35] VITALS: BP 130/86
[2019-12-02 15:42] LABS: % BANDS 1 % (0-9); % BASOS 1 % (0-3); % LYMPHS 22 % (24-48); % MONOS 6 % (0-10); % SEGS 70 % (35-66)
[2019-12-02 15:43] LABS: PLT ESTIMATE ADEQUATE (ADEQUATE)
[2019-12-02 15:56] LABS: BARBITURATES NEG (NEG); BENZODIAZEPINES NEG (NEG); CANNABINOIDS POS (NEG); COCAINE NEG (NEG); METHADONE NEG (NEG); OPIATES NEG (NEG); PHENCYCLIDINE NEG (NEG)
[2019-12-02 15:58] LABS: AMPHETAMINE/METHAMPHETAMINE NEG (NEG)
--- NOTE | 2019-12-02 16:50 | EKG ---
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
== END 2019-12-02 15:50 | disposition left against medical advice (07) ==
LOC: ER 14:34
DX: R07.89 Other chest pain (principal); I11.9 Hypertensive heart disease without heart failure; E78.00 Pure hypercholesterolemia, unspecified; E11.9 Type 2 diabetes mellitus without complications; Z98.890 Other specified postprocedural states; Z87.891 Personal history of nicotine dependence; Z90.89 Acquired absence of other organs; Z79.82 Long term (current) use of aspirin
CPT/HCPCS: 36415; 71045; 80053; 80307; 83880; 84484; 85007; 85025; 87804; 93005; 94640; 99285

== ENCOUNTER 2020-01-30 14:01 | Observation (INO) | payer OTHER ==
[~2020-01-30] VITALS: Ht 175.3 cm; Wt 95.1 kg
--- NOTE | 2020-01-30 14:24 | EKG ---
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
[2020-01-30] MEDS ORDERED: ASPIRIN CHEWABLE 81 MG TABLET. PO ONE (14:30)
[2020-01-30 14:38] LABS: BASO # 0.1 x10^3/uL (0.0-0.2); BASO % 1 % (0-3); EOS # 0.1 x10^3/uL (0.0-0.7); EOS % 1 % (0-3); HEMATOCRIT 51.9 % (39.0-53.0); HEMOGLOBIN 17.6 g/dL (13.0-17.5); LYMPH % 27 % (24-48); MEAN CORPUSCULAR HEMOGLOBIN 31 pg (25-35); MEAN CORPUSCULAR HGB CONC 34 g/dL (31-37); MEAN CORPUSCULAR VOLUME 91 fL (79-100); MONO % 9 % (0-9); NEUT # 6.7 x10^3uL (1.8-7.7); NEUT % 62 % (31-73); PLATELET COUNT 235 x10^3/uL (140-400); RED BLOOD COUNT 5.72 x10^6/uL (4.30-5.70); RED CELL DISTRIBUTION WIDTH 14.8 % (11.5-14.5); WHITE BLOOD COUNT 10.8 x10^3/uL (4.0-11.0)
--- NOTE | 2020-01-30 14:45 | RAD ---
EXAM: PORTABLE CHEST 1V INDICATION: Chest pain. TECHNIQUE: Single view COMPARISON: 12/02/2019 chest x-ray FINDINGS: The heart size is normal. There are sternotomy wires with a fractured superior cerclage wire noted. The great vessels appear unremarkable. There is no hilar or mediastinal mass. The lungs are hypoventilatory but show no focal infiltrates.. There is no pleural effusion or pneumothorax. There are no significant osseous abnormalities. IMPRESSION: No active cardiopulmonary disease. Fractured sternotomy wire superiorly. Correlate for any evidence of sternal dehiscence. Electronically signed by: Glen Manley MD (01/30/2020 2:42 PM) [id number]
[2020-01-30 14:49] LABS: CALCIUM 9.3 mg/dL (8.5-10.1); CREATININE 0.9 mg/dL (0.7-1.3); GFR 83.4; POTASSIUM 3.6 mmol/L (3.5-5.1)
--- NOTE | 2020-01-30 14:54 | PHYS DOC ---
Past History Past Medical History: CAD, Diabetes, High Cholesterol, Hypertension Past Surgical History: Colectomy, Other Additional Past Surgical Histo: BIPASS X5 Smoking: Cigarettes, Quit Greater Than 1 Year Alcohol Use: None Drug Use: None General Adult EDM: Chief Complaint: CHEST PAIN HPI: HPI: 69-year-old male presents with chest pain. He has been having intermittent chest pain for couple weeks. He states it has been more persistent last few days. The pain is sharp cramping sensation that does not radiate. Patient has also had a dry cough. He has had some shortness of breath but denies diaphoresis. He has had 5 vessel bypass many years ago. No cardiac cath or stress test for several years. No known COVID-19 exposures. Denies fever chills. Review of Systems: Review of Systems: Constitutional: Denies fever or chills Eyes: Denies change in visual acuity HENT: Denies nasal congestion or sore throat Respiratory: Cough with shortness of breath Cardiovascular: Chest pain GI: Denies abdominal pain, nausea, vomiting, bloody stools or diarrhea : Denies dysuria Musculoskeletal: Denies back pain or joint pain Integument: Denies rash Neurologic: Denies headache, focal weakness or sensory changes Endocrine: Denies polyuria or polydipsia Lymphatic: Denies swollen glands Psychiatric: Denies depression or anxiety Heart Score: HEART Score for Chest Pain: HEART Score for Chest Pain Response (Comments) Value History Moderately Suspicious 1 ECG Normal 0 Age > 65 2 Risk Factors >3 Risk Factors or Hx CAD 2 Troponin < Normal Limit 0 Total 5 Risk Factors: Risk Factors: DM, Current or recent (<one month) smoker, HTN, HLP, family history of CAD, obesity. Risk Scores: Score 0 - 3: 2.5% MACE over next 6 weeks - Discharge Home Score 4 - 6: 20.3% MACE over next 6 weeks - Admit for Clinical Observation Score 7 - 10: 72.7% MACE over next 6 weeks - Early Invasive Strategies Current Medications: Current Meds: Current Medications Medications (Trade) Dose Ordered Sig/Jeffrey Start Time Stop Time Status Last Admin Dose Admin Aspirin (Aspirin Chewable) 324 mg 1X ONCE 01/30/20 14:30 01/30/20 14:31 DC 01/30/20 14:29 324 MG Allergies: Allergies: Allergies Coded Allergies Type Severity Reaction Last Updated Verified No Known Drug Allergies 09/05/18 No Physical Exam: PE: Constitutional: Well developed, well nourished, no acute distress, non-toxic appearance. [] HENT: Normocephalic, atraumatic, bilateral external ears normal, oropharynx moist, no oral exudates, nose normal. [] Eyes: PERRLA, EOMI, conjunctiva normal, no discharge. [] Neck: Normal range of motion, no tenderness, supple, no stridor. [] Cardiovascular: Heart rate regular rhythm, no murmur [] Lungs & Thorax: Bilateral breath sounds clear to auscultation [] Abdomen: Bowel sounds normal, soft, no tenderness, no masses, no pulsatile masses. [] Skin: Warm, dry, no erythema, no rash. [] Back: No tenderness, no CVA tenderness. [] Extremities: No tenderness, no cyanosis, no clubbing, ROM intact, no edema. [] Neurologic: Alert and oriented X 3, normal motor function, normal sensory function, no focal deficits noted. [] Psychologic: Affect normal, judgement normal, mood normal. [] Current Patient Data: Labs: Laboratory Tests Test 01/30/20 14:25 White Blood Count 10.8 x10^3/uL (4.0-11.0) Red Blood Count 5.72 x10^6/uL (4.30-5.70) H Hemoglobin 17.6 g/dL (13.0-17.5) H Hematocrit 51.9 % (39.0-53.0) Mean Corpuscular Volume 91 fL (79-100) Mean Corpuscular Hemoglobin 31 pg (25-35) Mean Corpuscular Hemoglobin Concent 34 g/dL (31-37) Red Cell Distribution Width 14.8 % (11.5-14.5) H Platelet Count 235 x10^3/uL (140-400) Neutrophils (%) (Auto) 62 % (31-73) Lymphocytes (%) (Auto) 27 % (24-48) Monocytes (%) (Auto) 9 % (0-9) Eosinophils (%) (Auto) 1 % (0-3) Basophils (%) (Auto) 1 % (0-3) Neutrophils # (Auto) 6.7 x10^3uL (1.8-7.7) Lymphocytes # (Auto) 3.0 x10^3/uL (1.0-4.8) Monocytes # (Auto) 1.0 x10^3/uL (0.0-1.1) Eosinophils # (Auto) 0.1 x10^3/uL (0.0-0.7) Basophils # (Auto) 0.1 x10^3/uL (0.0-0.2) Vital Signs: Vital Signs Date Time Temp Pulse Resp B/P (MAP) Pulse Ox O2 Delivery O2 Flow Rate FiO2 01/30/20 14:15 98.3 66 20 141/88 (105) 96 Room Air EKG: EKG: Sinus rhythm, rate 69, normal axis, no ST elevations or depressions. [] Radiology/Procedures: Radiology/Procedures: [] Impressions: CT chest with contrast: History: Cough and dyspnea and chest pain Axial helical images of the chest were obtained after the administration of 100 cc of Isovue 370 IV contrast. Comparison: October 19, 2019 Findings: There is mild subpulmonic reticular opacities consistent with chronic pulmonary fibrosis. The thoracic aorta appears normal. There is no mediastinal lymphadenopathy or hematoma. There is no hilar lymphadenopathy. There has been prior median sternotomy and there is coronary artery calcifications. Impression: Chronic pulmonary fibrosis. No acute findings. End Impression PQRS Compliance Statement: One or more of the following individualized dose reduction techniques were utilized for this examination: 1. Automated exposure control 2. Adjustment of the mA and/or kV according to patient size 3. Use of iterative reconstruction technique Electronically signed by: Carmel Moon III, MD (01/30/2020 3:24 PM) [id number] DICTATED AND SIGNED BY: CARMEL MOON III, MD DATE: 01/30/20 1524 CC: PAL HUTCHINSON DO; SABINO GROVER MD ~ Course & Med Decision Making: Course & Med Decision Making Pertinent Labs and Imaging studies reviewed. (See chart for details) The patient's labs are significant for an elevated hemoglobin and a glucose of 400. His anion gap is normal. I will give him 10 units of insulin. Patient's chest x-ray was read as unremarkable however I went and ordered a CT of the chest. He has pulmonary fibrosis but no acute findings. The patient's heart score is a 5. I spoke with Dr. Sánchez about the patient and he has accepted him for admission. The patient is in agreement with this plan. [] Dragon Disclaimer: Dragon Disclaimer: This electronic medical record was generated, in whole or in part, using a voice recognition dictation system. Departure Departure: Impression: Primary Impression: Atypical chest pain Additional Impression: Poorly controlled type 2 diabetes mellitus Disposition: ADMITTED INPATIENT Admitting Physician: Armando Sánchez Condition: STABLE Referrals: SABINO GROVER MD (PCP) PAL HUTCHINSON DO January 30, 2020 14:54
[2020-01-30] MEDS ORDERED: IOHEXOL 300 MG/ML 75 ML VIAL. IV ONE (15:00)
[2020-01-30 15:02] LABS: ALBUMIN 3.6 g/dL (3.4-5.0); ALBUMIN/GLOBULIN RATIO 0.9 (1.0-1.7); TOTAL BILIRUBIN 0.5 mg/dL (0.2-1.0); TOTAL PROTEIN 7.6 g/dL (6.4-8.2)
[2020-01-30] MEDS ORDERED: IV NORMAL SALINE 500ML 500 ML IV ONE (15:15)
[2020-01-30] MEDS ORDERED: INSULIN REGULAR 100 UNIT/ML 3ML VIAL. IV ONE ×2 (15:15)
--- NOTE | 2020-01-30 15:27 | RAD ---
CT chest with contrast: History: Cough and dyspnea and chest pain Axial helical images of the chest were obtained after the administration of 100 cc of Isovue 370 IV contrast. Comparison: October 19, 2019 Findings: There is mild subpulmonic reticular opacities consistent with chronic pulmonary fibrosis. The thoracic aorta appears normal. There is no mediastinal lymphadenopathy or hematoma. There is no hilar lymphadenopathy. There has been prior median sternotomy and there is coronary artery calcifications. Impression: Chronic pulmonary fibrosis. No acute findings. End Impression PQRS Compliance Statement: One or more of the following individualized dose reduction techniques were utilized for this examination: 1. Automated exposure control 2. Adjustment of the mA and/or kV according to patient size 3. Use of iterative reconstruction technique Electronically signed by: Klever Pulido III, MD (01/30/2020 3:24 PM) [id number]
--- NOTE | 2020-01-30 18:16 | NUR ---
NURSING NOTE ADMIT PT ADMIT FROM ED TO ROOM 103 WITH DX OF CHEST PAIN AT 1815 VIA EMS. PT SETTLED IN ROOM. WILL CONTINUE TO MONITOR. ARIANNA ROSEN.
[2020-01-30 18:26] VITALS: BP 176/87
[2020-01-30 19:33] VITALS: BP 161/75
[2020-01-30] MEDS ORDERED: DEXTROSE 50% 25 GM / 50ML DISP.SYRIN. IV PRN (20:15)
[2020-01-30] MEDS ORDERED: INSULIN GLARGINE SYRINGE. SQ SCH (21:00)
[2020-01-30 22:00] VITALS: BP 160/76
--- NOTE | 2020-01-31 00:14 | NUR ---
At time of admission assessment, PT wishes to be changed to DNR status.
[2020-01-31 05:11] VITALS: BP 168/81
[2020-01-31] MEDS ORDERED: ASPIRIN CHEWABLE 81 MG TABLET. PO SCH (08:00)
[2020-01-31] MEDS: INSULIN LISPRO 300 UNITS/3 ML VIAL. SQ SCH ×2 (08:29→12:00)
--- NOTE | 2020-01-31 09:12 | NUR ---
Patient is alert, oriented to person, place and that it is May. States that he is not having chest pain, has no complaints. Has been walking hallways all morning without any issues. Still refuses to wear tele monitor. WCTM.
[2020-01-31 10:45] VITALS: BP 169/82
--- NOTE | 2020-01-31 13:24 | PDOC2 ---
CARDIAC CONSULT DATE OF CONSULT Date Of Consult DATE: 01/31/20 TIME: 13:19 REASON FOR CONSULT Reason for Consult Chest pain REFERRING PHYSICIAN Referring Physician Dr. Sánchez SOURCE Source: Chart review, Patient HPI History of Present Illness The patient is a 69-year-old male who was admitted through the emergency room with several days of episodes of chest discomfort. These episodes were not clearly related to exertion. He is feeling better today. EKG shows a sinus rhythm with no acute ischemic changes. Chest x-ray shows a previous sternotomy wires but no acute findings. CT scan of the chest with contrast showed chronic pulmonary fibrosis but no acute findings. Echocardiogram from 08/26/2019 shows an ejection fraction of 55 to 60%, mild left ventricular hypertrophy and a mildly dilated dilated right ventricle. Patient was admitted last August for similar episodes of discomfort. Echo as noted above was normal. He was tentatively plan for an outpatient ischemic work-up but he reports no testing has been done. PAST MEDICAL HISTORY Cardiovascular: CAD, HTN, hyperipidemia Pulmonary: COPD Endocrine: Diabetes PAST SURGICAL HISTORY Past Surgical History: CABG, Other (Coronary stents) FAMILY HISTORY Family History: Hypertension SOCIAL HISTORY Smoke: No ALCOHOL: none CURRENT MEDICATIONS Current Medications Current Medications Aspirin (Aspirin Chewable) 324 mg 1X ONCE PO Last administered on 01/30/20at 14:29; Start 01/30/20 at 14:30; Stop 01/30/20 at 14:31; Status DC Iohexol (Omnipaque 300 Mg/ml) 75 ml 1X ONCE IV Last administered on 01/30/20at 15:08; Start 01/30/20 at 15:00; Stop 01/30/20 at 15:01; Status DC Insulin Human Regular (HumuLIN R VIAL) 5 unit 1X ONCE IV ; Start 01/30/20 at 15:15; Stop 01/30/20 at 15:09; Status DC Insulin Human Regular (HumuLIN R VIAL) 10 unit 1X ONCE IV Last administered on 01/30/20at 16:26; Start 01/30/20 at 15:15; Stop 01/30/20 at 15:16; Status DC Sodium Chloride 500 ml @ 0 mls/hr 1X ONCE IV Last administered on 01/30/20at 16:23; Start 01/30/20 at 15:15; Stop 01/30/20 at 15:16; Status DC Aspirin (Aspirin Chewable) 81 mg DAILYWBKFT PO Last administered on 01/31/20at 08:26; Start 01/31/20 at 08:00 Insulin Glargine (Lantus Syringe) 20 unit QHS SQ Last administered on 01/30/20at 21:14; Start 01/30/20 at 21:00 Insulin Human Lispro (HumaLOG) 0-9 UNITS TIDWMEALS SQ Last administered on 01/31/20at 12:00; Start 01/31/20 at 08:00 Dextrose (Dextrose 50%-Water Syringe) 12.5 gm PRN Q15MIN PRN IV SEE COMMENTS; Start 01/30/20 at 20:15 Active Scripts Active ALLERGIES Allergies: Coded Allergies: No Known Drug Allergies (Unverified , 09/05/18) ROS Respiratory: YES: SOB with excertion Cardiovascular: yes: Chest Pain PHYSICAL EXAM General: No acute distress HEENT: Atraumatic Lungs: Other (Slightly decreased breath sounds) Heart: Regular rate Abdomen: Normal bowel sounds VITALS Vital Signs Vital Signs Date Time Temp Pulse Resp B/P (MAP) Pulse Ox O2 Delivery O2 Flow Rate FiO2 01/31/20 10:45 98.1 58 16 169/82 (111) 96 01/31/20 05:11 Room Air LABS LABS Laboratory Tests Test 01/30/20 14:25 01/30/20 19:49 01/30/20 22:07 01/31/20 02:15 White Blood Count 10.8 x10^3/uL (4.0-11.0) Red Blood Count 5.72 x10^6/uL (4.30-5.70) Hemoglobin 17.6 g/dL (13.0-17.5) Hematocrit 51.9 % (39.0-53.0) Mean Corpuscular Volume 91 fL (79-100) Mean Corpuscular Hemoglobin 31 pg (25-35) Mean Corpuscular Hemoglobin Concent 34 g/dL (31-37) Red Cell Distribution Width 14.8 % (11.5-14.5) Platelet Count 235 x10^3/uL (140-400) Neutrophils (%) (Auto) 62 % (31-73) Lymphocytes (%) (Auto) 27 % (24-48) Monocytes (%) (Auto) 9 % (0-9) Eosinophils (%) (Auto) 1 % (0-3) Basophils (%) (Auto) 1 % (0-3) Neutrophils # (Auto) 6.7 x10^3uL (1.8-7.7) Lymphocytes # (Auto) 3.0 x10^3/uL (1.0-4.8) Monocytes # (Auto) 1.0 x10^3/uL (0.0-1.1) Eosinophils # (Auto) 0.1 x10^3/uL (0.0-0.7) Basophils # (Auto) 0.1 x10^3/uL (0.0-0.2) Sodium Level 137 mmol/L (136-145) Potassium Level 3.6 mmol/L (3.5-5.1) Chloride Level 100 mmol/L (98-107) Carbon Dioxide Level 26 mmol/L (21-32) Anion Gap 11 (6-14) Blood Urea Nitrogen 15 mg/dL (8-26) Creatinine 0.9 mg/dL (0.7-1.3) Estimated GFR (Cockcroft-Gault) 83.4 BUN/Creatinine Ratio 17 (6-20) Glucose Level 400 mg/dL (70-99) Calcium Level 9.3 mg/dL (8.5-10.1) Total Bilirubin 0.5 mg/dL (0.2-1.0) Aspartate Amino Transf (AST/SGOT) 18 U/L (15-37) Alanine Aminotransferase (ALT/SGPT) 27 U/L (16-63) Alkaline Phosphatase 93 U/L (46-116) Troponin I Quantitative < 0.017 ng/mL (0-0.055) < 0.017 ng/mL (0-0.055) < 0.017 ng/mL (0-0.055) PH-Rtj-Y-Type Natriuretic Peptide 115 pg/mL (0-124) Total Protein 7.6 g/dL (6.4-8.2) Albumin 3.6 g/dL (3.4-5.0) Albumin/Globulin Ratio 0.9 (1.0-1.7) Glucose (Fingerstick) 444 mg/dL (70-99) Test 01/31/20 07:29 01/31/20 11:24 Glucose (Fingerstick) 275 mg/dL (70-99) 330 mg/dL (70-99) IMAGES IMAGES Chest x-ray and CT scan of the chest as above. EKG EKG Normal sinus rhythm with no acute ischemic changes. ECHOCARDIOGRAM Echocardiogram Echocardiogram from August 2019 as above with a normal ejection fraction and mild LVH ASSESSMENT/PLAN Assessment/Plan 1. Chest pain. Patient's EKG shows no acute ischemic changes. Troponin x2 is normal. History of bypass surgery as noted above with an admission last August with a normal echo. The patient denies chest pain this afternoon. At this time will continue on medical treatment. Would plan outpatient stress testing and contact the patient by phone monday. 2. Hypertension. Under reasonable control. 3. Hyperlipidemia. Would recommend a statin. 4. Diabetes mellitus. As per the primary service. 5. COPD. Shortness of breath improved. Continue present treatment. Thank you for allowing us to participate in the care of your patient. RACHEAL SHERMAN MD January 31, 2020 13:24
[2020-01-31] MEDS ORDERED: HYDR25TA10 PO (14:34)
[2020-01-31] MEDS ORDERED: LISI-334 PO (14:34)
[2020-01-31] MEDS ORDERED: METF-550 PO (14:34)
--- NOTE | 2020-01-31 14:58 | NUR ---
Patient is discharging, agrees with discharge plan. Pts IV is out. Went over scripts with patient, explained that they are $4 medications at [facility]. Pt verbalized understanding. Pt ambulated to front entrance. Security provided transport to ER where patients vehicle is.
--- NOTE | 2020-01-31 15:13 | HP ---
ADMIT DATE: HISTORY OF PRESENT ILLNESS: The patient is a 69-year-old male patient who apparently presented to the Emergency Room with chest pain, has been having intermittent chest pain for a couple of weeks. He states has been more persistent last few days, the pain is sharp, cramping sensation that does not radiate. The patient also has dry cough. He has had some shortness of breath, but denied diaphoresis. He had 5 vessel bypass graft many years ago. He has no cardiac catheterization or stress test done recently. No known COVID-19 exposure. Denies any fever or chills. He was extensively evaluated in the Emergency Room. His EKG showed he was in sinus rhythm with a heart rate of 69 beats per minute with no ST segment elevation or depression. CT scan of the chest with contrast showed that the patient has chronic pulmonary fibrosis and therefore no evidence of pulmonary emboli. His first set of cardiac enzyme showed troponin to be less than 0.017. Therefore, the patient was admitted to do 2 more sets of cardiac enzyme and to consult the cardiology team. PAST MEDICAL HISTORY: Significant for hypertension, hyperlipidemia, type 2 diabetes mellitus, chronic obstructive pulmonary disease and coronary artery disease, status post CABG. PAST SURGICAL HISTORY: Significant for coronary artery bypass graft surgery. FAMILY HISTORY: Noncontributory. SOCIAL HISTORY: He lives with his girlfriend. He quit smoking more than a year ago. He does not drink alcohol or use any recreational drugs. PHYSICAL EXAMINATION: GENERAL: On arrival to the Emergency Room, he looked well and was clearly in no apparent respiratory distress. There was no pallor, jaundice, cyanosis or thyromegaly. No jugular venous distention. No lower limb edema. VITAL SIGNS: Her heart rate was 66, blood pressure was 141/88, temperature was 98.3, respiratory rate 20, and oxygen saturation was 96% on room air. HEAD, EYES, EARS, NOSE AND THROAT: Showed normocephalic, atraumatic. NECK: Supple. HEART: Showed normal first and second heart sounds. No gallop or murmur. CHEST: Clear to auscultation. No crepitation or rhonchi. ABDOMEN: Distended, soft, nontender. NEUROLOGIC: He is awake, alert, somewhat confused, but otherwise all his cranial nerves are intact. EXTREMITIES: He moves extremities without difficulty, ambulates without assistance or assistive devices. LABORATORY DATA: Her lab work on arrival showed a white cell count 10,800, hemoglobin 17.6, hematocrit 52, MCV 91, and platelet count 235,000. His chemistry showed a serum sodium 137, potassium 3.6, chloride 100, bicarbonate 26, anion gap of 11, BUN 15, creatinine 0.9, estimated GFR was 83 mL per minute. His glucose was 400. Calcium was 9.3. Total bilirubin, AST, ALT, alkaline phosphatase were normal. Total protein was 7.6, albumin was 3.6. His first set of cardiac enzymes showed troponin to be less than 0.017. His chest x-ray showed the heart size is normal. There are sternotomy wires with a fractured ____ cerclage wire noted. The great vessels appear unremarkable. There is no hilar or mediastinal masses. The lungs are hypoventilatory, but showed no focal infiltrate. There is no pleural effusion or pneumothorax. There are no significant osseous abnormality. He did have also CT angio of the chest, which showed that there is mild subpulmonic reticular opacities consistent with chronic pulmonary fibrosis. The thoracic aorta appears normal. There is no mediastinal lymphadenopathy or hematoma. There is no hilar lymphadenopathy. There has been prior median sternotomy and there is coronary artery calcification. IMPRESSION: The impression is that the patient has chronic pulmonary fibrosis, no acute finding. The patient was admitted to do 2 more sets of cardiac enzyme and consult Cardiology. He was supposed to be on hydrochlorothiazide 25 mg once a day, lisinopril 20 mg once a day, metformin 1000 mg daily, pregabalin 150 mg 3 times a day and Tresiba FlexTouch 70 units subcutaneously daily, but stated that the patient cannot afford to have this medication. Once you discharge will probably look for the 4 dollar list at [facility] and at least give him a day prescription for probably hydrochlorothiazide, lisinopril and metformin. FABIAN GLASS MD DR: GERARD/zuleika JOB#: [id number] / [id number]
--- NOTE | 2020-01-31 15:25 | DS ---
DATE OF DISCHARGE: 01/31/2020 HOSPITAL COURSE: The patient was admitted with chest pain that is somewhat atypical. He has had 3 sets of cardiac enzymes that ruled out acute myocardial infarction. He was seen in consultation by the Cardiology team and the training generalist recommended the patient can be seen as an outpatient for a stress testing. Otherwise, he does not need any further ischemic workup. His admission in last August showed normal echocardiogram. When I saw him today this afternoon, he has had no further episodes of chest pain, has been up and about, has no shortness of breath, orthopnea, paroxysmal nocturnal dyspnea. PHYSICAL EXAMINATION: GENERAL: When I examined him, he looked well and was clearly in no apparent respiratory distress. No pallor or jaundice or cyanosis from thyromegaly. No jugular venous distention. No limb edema. VITAL SIGNS: His heart rate was 58, blood pressure 169/82, temperature was 98.1, respiratory rate was 16, and oxygen saturation was 96%. The rest of clinical exam is stable. LABORATORY DATA: He has 3 sets of cardiac enzymes that showed troponin to be less than 0.017. His blood sugar is suboptimally controlled. DISCHARGE MEDICATIONS: He was discharged home. I did give him prescription for lisinopril 20 mg once a day, hydrochlorothiazide 25 mg once a day and metformin 500 mg 3 times a day. FINAL DISCHARGE DIAGNOSES: 1. Chest pain, atypical. EKG showed no ischemic changes. He has 3 sets of cardiac enzymes, are normal. 2. Coronary artery disease, status post coronary artery bypass graft surgery. 3. His echocardiogram showed that he has normal left ventricular systolic function on echocardiogram done last August. 4. Hypertension. 5. Hyperlipidemia. 6. Type 2 diabetes mellitus. 7. Chronic obstructive pulmonary disease. FABIAN GLASS MD DR: GERARD/zuleika JOB#: [id number] / [id number]
== END 2020-01-31 15:02 | disposition home or self-care (01) ==
LOC: ER 14:01 → INTOOBSV 16:05 → 1 SOUTH 16:05
PROVIDERS: ADMIT Internal Medicine; ATTEND Internal Medicine
DX: R07.89 Other chest pain (principal); J44.9 Chronic obstructive pulmonary disease, unspecified; J84.10 Pulmonary fibrosis, unspecified; E78.5 Hyperlipidemia, unspecified; E11.65 Type 2 diabetes mellitus with hyperglycemia; I10 Essential (primary) hypertension; I25.10 Atherosclerotic heart disease of native coronary artery without angina pectoris; E78.00 Pure hypercholesterolemia, unspecified; Z95.1 Presence of aortocoronary bypass graft; Z95.5 Presence of coronary angioplasty implant and graft; Z87.891 Personal history of nicotine dependence; Z79.899 Other long term (current) drug therapy; Z79.84 Long term (current) use of oral hypoglycemic drugs
CPT/HCPCS: 36415; 71045; 71260; 80053; 80061; 82947; 83036; 83880; 84484; 85025; 93005; 96372; 99285; G0378; J1815; J7040; Q9967; 96361; 96374; G0379

== ENCOUNTER 2020-02-12 20:47 | Observation (INO) | payer OTHER ==
[~2020-02-12] VITALS: Ht 175.3 cm; Wt 94.9 kg
[~2020-02-12 20:47] MED LIST changes: +METF-550 PO
--- NOTE | 2020-02-12 21:13 | PHYS DOC ---
Past History Past Medical History: CAD, Diabetes, High Cholesterol, Hypertension Past Surgical History: Colectomy, Other Additional Past Surgical Histo: BIPASS X5 Smoking: Cigarettes, Quit Greater Than 1 Year Alcohol Use: None Drug Use: None General Adult EDM: Chief Complaint: UPPER EXTREMITY PAIN HPI: HPI: 69-year-old male presents with left arm tingling. He states that the [id number] sensation goes all the way down into his hand and includes all 5 fingers. This started sometime this morning. He believes it started after he woke up. He felt normal yesterday. He denies doing anything strenuous. He denies trauma. No history of arm shoulder or neck issues. He has had 5 vessel bypass many years ago. He denies chest pain, shortness of breath, diaphoresis. 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 He denies fever chills. He has no other complaints at this time. Review of Systems: Review of Systems: Constitutional: Denies fever or chills Eyes: Denies change in visual acuity HENT: Denies nasal congestion or sore throat Respiratory: Denies cough or shortness of breath Cardiovascular: Denies chest pain or edema GI: Denies abdominal pain, nausea, vomiting, bloody stools or diarrhea : Denies dysuria Musculoskeletal: Left arm tingling Integument: Denies rash Neurologic: Denies headache, focal weakness or sensory changes Endocrine: Denies polyuria or polydipsia Lymphatic: Denies swollen glands Psychiatric: Denies depression or anxiety Heart Score: Risk Factors: Risk Factors: DM, Current or recent (<one month) smoker, HTN, HLP, family history of CAD, obesity. Risk Scores: Score 0 - 3: 2.5% MACE over next 6 weeks - Discharge Home Score 4 - 6: 20.3% MACE over next 6 weeks - Admit for Clinical Observation Score 7 - 10: 72.7% MACE over next 6 weeks - Early Invasive Strategies Allergies: Allergies: Allergies Coded Allergies Type Severity Reaction Last Updated Verified No Known Drug Allergies 09/05/18 No Physical Exam: PE: Constitutional: Well developed, well nourished, no acute distress, non-toxic appearance. [] HENT: Normocephalic, atraumatic, bilateral external ears normal, oropharynx moist, no oral exudates, nose normal. [] Eyes: PERRLA, EOMI, conjunctiva normal, no discharge. [] Neck: Normal range of motion, no tenderness, supple, no stridor. [] Cardiovascular:Heart rate regular rhythm, no murmur [] Lungs & Thorax: Bilateral breath sounds clear to auscultation [] Abdomen: Bowel sounds normal, soft, no tenderness, no masses, no pulsatile masses. [] Skin: Warm, dry, no erythema, no rash. [] Back: No tenderness, no CVA tenderness. [] Extremities: No tenderness, no cyanosis, no clubbing, ROM intact, no edema. 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 [] Psychologic: Affect normal, judgement normal, mood normal. [] Current Patient Data: Vital Signs: Vital Signs Date Time Temp Pulse Resp B/P (MAP) Pulse Ox O2 Delivery O2 Flow Rate FiO2 02/12/20 20:56 98.1 72 16 140/81 (100) 95 Room Air EKG: EKG: [] Radiology/Procedures: Radiology/Procedures: [] Impressions: CERVICAL SPINE 2-3V History: Left arm tingling. Pain. Technique: 3 views cervical spine. Comparison: None. Findings: Straightening of the normal cervical lordosis, likely positional. Normal vertebral body height. No fracture. Moderate degenerative changes most prominent C5-C6 and C6-C7. Multilevel facet arthropathy. Normal alignment C1 on C2. Prevertebral soft tissues unremarkable. Nuchal ligament ossification noted. C7-T1 articulation not well profiled on lateral view. Impression: 1. No acute osseous abnormality. 2. Moderate multilevel cervical spondylosis. Electronically signed by: Lamberto Ram DO (02/12/2020 9:57 PM) [facility] DICTATED AND SIGNED BY: LAMBERTO RAM DO DATE: 02/12/202156 CC: PAL HUTCHINSON DO; SABINO GROVER MD ~ CHEST AP ONLY History: Left arm tingling. Comparison: Radiograph and CT January 30, 2020 Findings: Low lung volumes. Patchy bibasilar opacities. No pleural effusion. No pneumothorax. Prior median sternotomy with fractured sternal wire superiorly, unchanged. Impression: 1. Low lung volumes with patchy bibasilar opacities, likely atelectasis. If persistent clinical concern, PA and lateral view the chest can better assess. Electronically signed by: Lamberto Ram DO (02/12/2020 9:55 PM) [facility] DICTATED AND SIGNED BY: LAMBERTO RAM DO DATE: 02/12/202154 CC: PAL HUTCHINSON DO; SABINO GROVER MD ~ Course & Med Decision Making: Course & Med Decision Making Pertinent Labs and Imaging studies reviewed. (See chart for details) Patient's blood sugar is 529. He is not taking his insulin as he supposed to be. We will start him on a liter of normal saline and 10 units of regular insulin. His other labs are generally unremarkable. His x-rays do not show any acute findings. Given his hyperglycemia with a normal anion gap I will still admit him for hyperglycemia and start him on an insulin pump. The patient has agreed to admission. I spoke with Dr. Sánchez and he has accepted the patient for admission. [] Dragon Disclaimer: Dragon Disclaimer: This electronic medical record was generated, in whole or in part, using a voice recognition dictation system. Departure Departure: Impression: Primary Impression: Poorly controlled type 2 diabetes mellitus Additional Impression: Hyperglycemia due to diabetes mellitus Disposition: ADMITTED INPATIENT Admitting Physician: Hussain Looney Condition: STABLE Referrals: SABINO GROVER MD (PCP) PAL HUTCHINSON DO February 12, 2020 21:13
[2020-02-12 21:27] LABS: BASO # 0.1 x10^3/uL (0.0-0.2); BASO % 1 % (0-3); EOS # 0.1 x10^3/uL (0.0-0.7); EOS % 1 % (0-3); HEMATOCRIT 49.6 % (39.0-53.0); LYMPH # 3.9 x10^3/uL (1.0-4.8); LYMPH % 39 % (24-48); MEAN CORPUSCULAR HEMOGLOBIN 31 pg (25-35); MEAN CORPUSCULAR HGB CONC 34 g/dL (31-37); MEAN CORPUSCULAR VOLUME 90 fL (79-100); MONO % 10 % (0-9); NEUT # 4.9 x10^3uL (1.8-7.7); NEUT % 49 % (31-73); PLATELET COUNT 263 x10^3/uL (140-400); RED CELL DISTRIBUTION WIDTH 13.9 % (11.5-14.5)
[2020-02-12 21:39] LABS: CALCIUM 9.7 mg/dL (8.5-10.1); GFR 73.9; POTASSIUM 4.4 mmol/L (3.5-5.1)
[2020-02-12 21:42] LABS: ALBUMIN 3.5 g/dL (3.4-5.0); ALBUMIN/GLOBULIN RATIO 0.9 (1.0-1.7); TOTAL BILIRUBIN 0.2 mg/dL (0.2-1.0); TOTAL PROTEIN 7.3 g/dL (6.4-8.2)
--- NOTE | 2020-02-12 21:58 | RAD ---
CHEST AP ONLY History: Left arm tingling. Comparison: Radiograph and CT January 30, 2020 Findings: Low lung volumes. Patchy bibasilar opacities. No pleural effusion. No pneumothorax. Prior median sternotomy with fractured sternal wire superiorly, unchanged. Impression: 1. Low lung volumes with patchy bibasilar opacities, likely atelectasis. If persistent clinical concern, PA and lateral view the chest can better assess. Electronically signed by: Lamberto Ram DO (02/12/2020 9:55 PM) [facility]
--- NOTE | 2020-02-12 22:00 | RAD ---
CERVICAL SPINE 2-3V History: Left arm tingling. Pain. Technique: 3 views cervical spine. Comparison: None. Findings: Straightening of the normal cervical lordosis, likely positional. Normal vertebral body height. No fracture. Moderate degenerative changes most prominent C5-C6 and C6-C7. Multilevel facet arthropathy. Normal alignment C1 on C2. Prevertebral soft tissues unremarkable. Nuchal ligament ossification noted. C7-T1 articulation not well profiled on lateral view. Impression: 1. No acute osseous abnormality. 2. Moderate multilevel cervical spondylosis. Electronically signed by: Lamberto Ram DO (02/12/2020 9:57 PM) [facility]
[2020-02-12 22:14] LABS: COLOR,URINE STRAW
[2020-02-12 22:15] LABS: BILIRUBIN,URINE NEG (NEG); CLARITY,URINE CLEAR; GLUCOSE,URINE >=1000 mg/dL (NEG); NITRITE,URINE NEG (NEG); UROBILINOGEN,URINE 0.2 mg/dL (0.2 mg/dL)
[2020-02-12 22:22] LABS: RBC,URINE 0 /HPF (0-2); WBC,URINE 0 /HPF (0-4)
[2020-02-12 22:23] LABS: BACTERIA,URINE 0 /HPF (0-FEW)
[2020-02-12] MEDS ORDERED: DEXTROSE 50% 25 GM / 50ML DISP.SYRIN. IV PRN (22:30)
[2020-02-12] MEDS ORDERED: ONDANSETRON PF 4 MG/2 ML VIAL. IVP PRN (22:30)
[2020-02-12] MEDS ORDERED: INSULIN REGULAR VIAL 100 UNIT in IV NORMAL SALINE 100ML 100 ML IV PRN (22:30)
[2020-02-12] MEDS ORDERED: IV NORMAL SALINE 1,000ML 1,000 ML IV ONE (22:30)
[2020-02-12] MEDS ORDERED: INSULIN REGULAR 100 UNIT/ML 3ML VIAL. IV ONE (22:30)
[2020-02-13 00:26] VITALS: BP 141/79
[2020-02-13] MEDS ORDERED: INSULIN GLARGINE SYRINGE. SQ ONE (01:00)
[2020-02-13 05:03] VITALS: BP 113/59
--- NOTE | 2020-02-13 06:41 | EKG ---
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
[2020-02-13 09:13] VITALS: BP 134/63
[2020-02-13] MEDS ORDERED: DEXTROSE 50% 25 GM / 50ML DISP.SYRIN. IV PRN (12:15)
[2020-02-13] MEDS ORDERED: INSULIN LISPRO 300 UNITS/3 ML VIAL. SQ SCH ×4 (12:30→17:00)
[2020-02-13 13:06] VITALS: BP 144/79
--- NOTE | 2020-02-13 16:10 | HP ---
ADMIT DATE: 02/12/2020 HISTORY OF PRESENT ILLNESS: The patient is a 69-year-old male patient who presented to the Emergency Room with complaint of left arm tingling. He states that he has pins and needle sensation goes all the way down to his hands and includes all 5 fingers that started yesterday morning. He believes it started after he woke up, he felt normal the day before. He denies doing anything strenuous. He denies any trauma, no history of arm, shoulder or neck issues. He has 5-vessel bypass surgery many years ago. He denied any chest pain, shortness of breath, diaphoresis. However, his sliding joint maker strength is equal on both sides. He denied any other complaint. He denied any weakness in his lower extremities or any bowel or bladder problems. He was evaluated in the Emergency Room, his blood sugar was found to be extremely high at 529 mg/dL. However, his anion gap was only 12. He has dilutional hyponatremia. While in the Emergency Room, he had had a chest x-ray, which showed low lung volumes, patchy bibasilar opacities, no pleural effusion, no pneumothorax. Prior median sternotomy with fractured sternal wires superiorly, unchanged. He had had a x-ray of the cervical spine, which showed that there is straightening of the normal cervical lordosis, likely positional, normal vertebral body height. No fracture. He has moderate degenerative changes, most prominent at C5-C6 and C6-C7 and multilevel facet arthropathy. Normal alignment of C1 to C2 and prevertebral soft tissues unremarkable. ____ ossification noted. He was started on IV fluid and also given insulin in the Emergency Room and was admitted for poorly controlled type 2 diabetes mellitus. PAST MEDICAL HISTORY: Significant for morbid obesity, mixed hyperlipidemia, bipolar disorder, essential hypertension, keratoacanthoma of the shoulder, type 2 myocardial infarction, nonalcoholic steatohepatitis, coronary artery disease involving [place] coronary arteries. He has also attention deficit disorder. He also has type 2 diabetes with triopathy. ALLERGIES: He has no known drug allergies. MEDICATIONS: According to Dr. Marte's office is Strattera 80 mg 1 capsule daily, atorvastatin for Lipitor 80 mg at bedtime. He is on hydrochlorothiazide 25 mg once a day, hydroxyzine 50 mg at bedtime, Atarax 50 mg by mouth nightly. He is on Tresiba 70 units subcutaneously once a day. He is on lisinopril 20 mg once a day, metformin 1000 mg twice a day, pregabalin for Lyrica 150 mg 3 times a day. He is on Zanaflex 4 mg tablet daily and trazodone 100 mg at nighttime for insomnia. He is on insulin lispro, Humalog insulin 40 units 3 times a day. FAMILY HISTORY: Unremarkable. SOCIAL HISTORY: He is and lives with his son, he has another son in [place] in [place]. He is a former smoker, he used to smoke cigarettes and cigars. Never used any smokeless tobacco. He does not drink alcohol and currently retired. PHYSICAL EXAMINATION: GENERAL: On arrival to the Emergency Room, he looked well and was clearly in no apparent respiratory distress. No pallor, jaundice, cyanosis or thyromegaly. No jugular venous distention. No limb edema. VITAL SIGNS: Her heart rate was 72, blood pressure was 137/88, temperature was 98.1, respiratory rate was 16, and oxygen saturation was 95%. HEAD, EYES, EARS, NOSE AND THROAT: Showed normocephalic, atraumatic. NECK: Supple. HEART: Showed normal first and second heart sounds. No gallop or murmur. CHEST: Clear to auscultation. No crepitation or rhonchi. ABDOMEN: Distended, soft, nontender. No guarding or rigidity. No organomegaly. All hernial orifice intact. Bowel sounds normal. NEUROLOGIC: He is awake, alert, responding appropriately. All his cranial nerves are intact. EXTREMITIES: He moves extremities without difficulty, ambulates with a cane. LABORATORY DATA: His lab work on arrival to the Emergency Room showed a white cell count of 10,000, hemoglobin 17, hematocrit 49.6, MCV 90 and platelet count 263,000 with normal manual differential. His chemistry showed serum sodium of 132, potassium 4.4, chloride 95, bicarbonate 25, anion gap of 12, BUN 22, creatinine 1, estimated GFR was 74 mL per minute. His glucose was 529, calcium was 9.7. Total bilirubin, AST, ALT, alkaline phosphatase were normal. Total protein was 7.3, albumin 3.5. Urinalysis showed the urine was straw colored, clear with a pH of 5.5, specific gravity of 1.030. The urine was negative for protein, large amount of glucose, negative for ketones, small amount of blood, negative for nitrite and leukocyte esterase. There are no rbc's, no wbc's. The patient was admitted and started on IV fluids and also on Lantus insulin; however, his blood sugar continued to be extremely elevated. I spoke with Dr. Marte's office and received all the information that he has actually had a prescription for all his medication and that he in fact has 3 month supply with 3 refill covering the whole year. The plan is probably to arrange for him to be discharged home with home health and that he needs to follow with Dr. Marte more frequently than he is doing. FABIAN GLASS MD DR: GERARD/zuleika JOB#: [id number] / [id number]
--- NOTE | 2020-02-13 17:21 | DS ---
DATE OF DISCHARGE: 02/13/2020 HOSPITAL COURSE: The patient was admitted with tingling and numbness in his left extremity that extends all the way to his all fingers; however, on questioning him further, he told the ER physician that started yesterday. He told me it started about 3 days ago. He told the nurse that he does not have any tingling or numbness. His environmental services lead on both hands is normal. I contacted Dr. Marte's office and in fact I found out that he has 90 days of prescription with 3 refills for all his medications. He has a son that lives with him that is not really involved in his care and the other son lives in [place] in [place] and he attempted to take him there to be able to supervise him more but so far he has not managed to do that. I have had a lengthy discussion with our case resource manager and the plan is to discharge him home with Home Health. We will provide the home health agency with all the medications that he was supposed to be on. He has [facility] plan and theoretically he should be able to have all his medications. PHYSICAL EXAMINATION: GENERAL: When I saw him this afternoon, he looked well and was clearly in no apparent respiratory distress. No pallor, jaundice, cyanosis or thyromegaly. No jugular venous distention. No limb edema. VITAL SIGNS: His heart rate was 65, blood pressure 144/79, temperature was 98, respiratory rate was 18 and oxygen saturation was 98%. The rest of clinical exam is stable. He is grossly neurologically stable. He is able to walk with a cane. DISCHARGE MEDICATIONS: He will be discharged home with home health to continue on all his medication as listed by Dr. Marte. He was encouraged to visit with frequent appointment with his primary care physician. FINAL DISCHARGE DIAGNOSES: Poorly controlled type 2 diabetes, hypertension, hyperlipidemia, coronary artery disease, status post coronary artery bypass graft and he has also ADHD for which he is supposed to be on Strattera. He has actually 90-day supply with 3 refills for that also. FABIAN GLASS MD DR: GERARD/zuleika JOB#: [id number] / [id number]
[2020-02-13] MEDS ORDERED: INSULIN GLARGINE SYRINGE. SQ SCH (21:00)
== END 2020-02-13 16:20 | disposition home health service (06) ==
LOC: ER 20:47 → INTOOBSV 22:40 → ICU 22:40
PROVIDERS: ADMIT Internal Medicine; ATTEND Internal Medicine
DX: E11.65 Type 2 diabetes mellitus with hyperglycemia (principal); I10 Essential (primary) hypertension; I25.10 Atherosclerotic heart disease of native coronary artery without angina pectoris; E66.01 Morbid (severe) obesity due to excess calories; I25.2 Old myocardial infarction; F31.9 Bipolar disorder, unspecified; E87.1 Hypo-osmolality and hyponatremia; K75.81 Nonalcoholic steatohepatitis (NASH); E78.2 Mixed hyperlipidemia; M47.812 Spondylosis without myelopathy or radiculopathy, cervical region; Z95.1 Presence of aortocoronary bypass graft; Z87.891 Personal history of nicotine dependence; Z79.4 Long term (current) use of insulin
CPT/HCPCS: 36415; 71045; 72040; 80053; 81001; 82947; 84484; 85025; 93005; 96361; 96372; 96374; 99285; G0378; J1815; G0379; J7030